=== PATIENT | female | born 1990 | race American Indian/Alaskan Native ===

== ENCOUNTER 2017-03-22 18:37 | Emergency (ER) | payer OTHER, MEDICARE ==
[2017-03-22 18:48] VITALS: BP 136/82
--- NOTE | 2017-03-22 20:21 | Ultrasound Report ---
FINAL REPORT PROCEDURE: US OB \T\gt; = 14 WEEKS FETUS TECHNIQUE: Real-time transabdominal sonography of the uterus, placenta, amniotic fluid, adnexa, and fetus was performed with image documentation. Measurements were obtained to determine age/size. M-mode Doppler was used to document heartbeat. CPT 34535 HISTORY: Pain after trauma COMPARISON: No prior studies are available for comparison. FINDINGS: ADDITIONAL GESTATION: None. GENERAL: IUP: Single living intrauterine . Position: Breech Placental position: Posterior and grade 0, without previa. Amniotic fluid volume: Subjectively within normal limits. Volume is not measured. MATERNAL: Uterus: Within normal limits. Cervical length: Transabdominal measurement is 3.3 cm. Internal Os: Closed. FETUS: Heart rate and rhythm: 149 beats per minute anatomic survey: Not performed MEASUREMENTS: BPD: 4.6 centimeters, 19 weeks 5 days HC: 17.2 centimeters, 19 weeks 5 days AC: 14.4 centimeters, 19 weeks 5 days FL: 3.1 centimeters, 19 weeks 5 days Mean Gestational Age (composite criteria): 19 weeks 5 days Ratio biometry: Normal. Estimated Weight: 309 grams. Interval growth: Appropriate. Estimated Due Date (earliest scan): 08/11/2017 IMPRESSION: Single intrauterine gestation at 19 weeks 5 days. Estimated due date: 08/11/2017.
== END 2017-03-23 02:35 | disposition left against medical advice (07) ==
LOC: ED 18:37
DX: R10.9 Unspecified abdominal pain (principal); Z53.21 Procedure and treatment not carried out due to patient leaving prior to being seen by health care provider
CPT/HCPCS: 36415; 76805; 84702

== ENCOUNTER 2017-04-17 07:52 | Outpatient (CLI) | payer MEDICAID ==
[2017-04-17 08:32] VITALS: BP 107/58
[2017-04-17 09:29] LABS: Urine Drugs of Abuse Note Disclamer
[2017-04-17 09:38] LABS: Bilirubin,Urine NEG (Negative); Blood,Urine MOD (Negative); Ketones,Urine NEG (Negative); Leukocyte Esterase,Urine NEG (Negative); Mucus,Urine FEW /HPF; Nitrite,Urine NEG (Negative); Protein,Urine <15 mg/dL mg/dL (Negative); Urobilinogen,Urine < 2.0 mg/dL (<2.0); WBC,Urine < 1.0 /HPF (0.0-6.0)
--- NOTE | 2017-04-17 11:36 | Ultrasound Report ---
ULTRASOUND OB LIMITED History: Vaginal bleeding Technique: Transabdominal ultrasound with Doppler interrogation. Gestation: Single Position: Breech Amniotic Fluid: Within normal limits Placenta: Fundal Placental Grade: 0 No evidence for abruption. Heart Rate: 140 BPM Cervical length: 3.7 cm (Normal > 3 cm)
== END 2017-04-17 10:39 | disposition home or self-care (01) ==
LOC: TRG 07:52
PROVIDERS: ATTEND Obstetrics & Gynecology
DX: O32.1XX0 Maternal care for breech presentation, not applicable or unspecified (principal); O47.02 False labor before 37 completed weeks of gestation, second trimester; Z3A.23 23 weeks gestation of pregnancy
CPT/HCPCS: 76815; 80307; 81001

== ENCOUNTER 2017-06-21 17:44 | Observation (INO) | payer MEDICAID ==
[2017-06-21] MEDS ORDERED: TYLENOL PO PRN (20:23)
[2017-06-21] MEDS ORDERED: COLACE PO PRN (20:23)
--- NOTE | 2017-06-21 21:28 | History and Physical Report ---
History of Present Illness Date of examination: 06/21/17 Chief complaint: Abnormal testing History of present illness: 27-year-old at 32+5 weeks presents with above complaints and issues, she is a [employer] patient with late presentation to care. Essential history this patient with care complicated by chronic hypertension and IUGR was seen at [facility] office today. She was noted to have BPP 6 out of 8 (- 2 fluid w/ GARRET 5) and cat 2 NST. She was therefore referred to [facility] for admission and care. On L&D, her blood pressure is within normal limits. She denies headache, shortness of breath or chest pain. No fever or chills. No contractions noted, no loss of fluid no vaginal bleeding plus movement Past History Past Medical History: hypertension Past Surgical History: no surgical history Social history: single, full code. denies: smoking, alcohol abuse, prescription drug abuse, IV drug use - Obstetrical History Expected Date of Delivery: 08/11/17 Actual Gestation: 32 Week(s) 5 Day(s) : 3 Para: 2 Medications and Allergies Allergies Allergy/AdvReac Type Severity Reaction Status Date / Time No Known Allergies Allergy Unverified 11/21/13 18:27 Home Medications Medication Instructions Recorded Confirmed Last Taken Type Labetalol [Normodyne TAB] 100 mg PO BID 04/17/17 04/17/17 1 Day Ago History ~04/16/17 100 Active Meds: Active Medications Acetaminophen (Tylenol) 650 mg PO Q4H PRN PRN Reason: Pain MILD(1-3)/Fever >100.5/SY Aspirin (Baby Aspirin) 81 mg PO QDAY [facility] Betamethasone Acet/Betameth SodPhos (Celestone Soluspan) 12 mg IM Q24H [facility] Stop: 06/22/17 21:01 Docusate Sodium (Colace) 100 mg PO Q12H PRN PRN Reason: Constipation Lactated Ringer's (Lactated Ringers) 1,000 mls @ 125 mls/hr IV DIRECT [facility] Labetalol HCl (Normodyne) 100 mg PO BID [facility] Multivitamins/Iron/Calcium ( Vitamin) 1 each PO QDAY [facility] Review of Systems Eyes: no diplopia, no photophobia, no blind spots Cardiovascular: no chest pain, no orthopnea, no shortness of breath, no dyspnea on exertion, no high blood pressure Respiratory: no cough, no cough with sputum Gastrointestinal: no abdominal pain, no nausea, no vomiting, no heartburn, no indigestion Genitourinary: no vaginal bleeding, no vaginal discharge, no leakage of fluid, no dysuria, no genital sores, no contractions - Vital Signs Vital signs: Vital Signs Pulse Pulse Ox 96 H 100 06/21/17 19:23 06/21/17 19:23 Temp Pulse Resp BP Pulse Ox 98 F 102 H 118/77 100 06/21/17 20:30 06/21/17 20:30 06/21/17 20:30 06/21/17 19:28 - Physical Exam Cardiovascular: Regular rate, Normal S1, Normal S2 Lungs: Positive: Clear to auscultation, Normal air movement Abdomen: Positive: normal appearance, soft. Negative: distention, tenderness, guarding, rigidity Uterus: Positive: enlarged Adnexa: both: normal Extremities: Positive: normal Results All other labs normal. Assessment and Plan A: 27-year-old at 32+5 weeks with chronic hypertension -Referred from [facility] office Issues -BPP 11/05 (-2 FL w/ GARRET ~ 5) on 06/21/17 -Non reassuring NST -IUGR @ 24 wks (EFW ~ 5% per [facility]) -Nml Dopplers on 06/21/17 -CHTN on labetatlol 100mg BID -Morbid Obesity -h/o of IUFD w/ placental abruptn @ ~ 32 wks P: -Admit for observation and fluid hydration -Continue labetalol -When necessary IV antihypertensives -Will start magnesium if blood pressure in the severe range persistent -Celestone course -GARRET in 48 hours (per [facility]) -Consider repeat BPP and Dopplers in 48 hours -Consider NICU consult - Patient Problems (1) 32 weeks gestation of Current Visit: Yes Status: Acute (2) IUGR (intrauterine growth restriction) Current Visit: Yes Status: Acute (3) Hypertension affecting in third trimester Current Visit: Yes Status: Acute (4) Oligohydramnios in saavedra in third trimester Current Visit: Yes Status: Acute
[2017-06-21] MEDS: LACTATED RINGERS 1,000 ML IV SCH (21:59)
[2017-06-21] MEDS: CELESTONE SOLUSPAN IM SCH (21:59)
[2017-06-21] MEDS: NORMODYNE PO SCH (22:02)
[2017-06-22] MEDS: LACTATED RINGERS 1,000 ML IV SCH (05:51)
--- NOTE | 2017-06-22 09:34 | Progress Note ---
Assessment and Plan - Patient Problems (1) 32 weeks gestation of Current Visit: Yes Status: Acute (2) Hypertension affecting in third trimester Current Visit: Yes Status: Acute Plan to address problem: BP has been stable. Baseline toxemia labs ordered. 24-hr urine ordered. Continue close BP monitoring and labetolol. Continuous monitoring. Repeat BPP tomorrow. (3) IUGR (intrauterine growth restriction) Current Visit: Yes Status: Acute Plan to address problem: Repeat umbilical doppler and S/D ratio tomorrow. (4) Oligohydramnios in saavedra in third trimester Current Visit: Yes Status: Acute Plan to address problem: Repeat GARRET tomorrow. Subjective - Subjective Date of service: 06/22/17 Principal diagnosis: 32 weeks with abnormal BPP Interval history: Patient was admitted at 32 weeks for abnormal BPP yesterday. She goes [facility] weekly for NST and BPP and yesterday, her BPP was 6/8 (-2 for GARRET which was 5). She was sent for admission for monitoring. She has a history of chronic HTN and is on labetolol 100 mg PO BID. Her BP has been stable in 120/80's since admission. NST has been CAT 1. Previous sonogram showed IUGR earlier in this . Her last umbilical doppler was normal. She has received [employer] for FLM. Objective - Vital Signs Vital Signs: Vital Signs - 12hr 06/21/17 06/22/17 06/22/17 22:02 00:58 00:59 Temperature 97.8 F Pulse Rate 102 H 95 H 95 H Respiratory 16 Rate Blood Pressure 118/77 138/83 Blood Pressure 136/83 [Right] O2 Sat by Pulse Oximetry 06/22/17 06/22/17 06/22/17 05:50 06:47 07:55 Temperature 97.6 F 96.4 F L Pulse Rate 90 96 H Respiratory 20 Rate Blood Pressure 120/70 Blood Pressure 121/77 [Right] O2 Sat by Pulse 100 Oximetry 06/22/17 06/22/17 06/22/17 07:56 07:58 08:00 Temperature Pulse Rate 97 H 96 H 97 H Respiratory Rate Blood Pressure 121/77 Blood Pressure [Right] O2 Sat by Pulse 100 89 Oximetry 06/22/17 06/22/17 06/22/17 08:06 08:11 08:16 Temperature Pulse Rate 91 H 89 107 H Respiratory Rate Blood Pressure Blood Pressure [Right] O2 Sat by Pulse 100 100 98 Oximetry 06/22/17 06/22/17 06/22/17 08:21 08:26 08:31 Temperature Pulse Rate 114 H 107 H 106 H Respiratory Rate Blood Pressure Blood Pressure [Right] O2 Sat by Pulse 99 98 98 Oximetry 06/22/17 06/22/17 09:21 09:26 Temperature Pulse Rate 106 H 110 H Respiratory Rate Blood Pressure Blood Pressure [Right] O2 Sat by Pulse 99 100 Oximetry - Exam Cardiovascular: Normal S1, Normal S2 Lungs: Clear to auscultation Vulva: both: normal FHR: category 1 Uterine Contraction Monitor Mode: External Uterine Contraction Pattern: Absent Deep Tendon Reflex Grade: Normal +2 - Labs Labs: Laboratory Results - last 24 hr 06/21/17 21:10 Blood Type A POSITIVE Antibody Screen Negative
[2017-06-22] MEDS: NORMODYNE PO SCH ×2 (10:33→22:00)
[2017-06-22] MEDS: BABY ASPIRIN PO SCH (10:33)
[2017-06-22] MEDS: PRENATAL VITAMIN PO SCH (10:34)
[2017-06-22 10:36] LABS: Basophils % (Auto) 0.2 % (0.0-1.8); Hematocrit 32.3 % (30.3-42.9); Lymphocytes # (Auto) 1.1 K/mm3 (1.2-5.4); Mean Corpuscular HGB Conc 34 % (30-34); Mean Corpuscular Hemoglobin 31 pg (28-32); Mean Corpuscular Volume 90 fl (79-97); Monocytes # (Auto) 0.5 K/mm3 (0.0-0.8); Monocytes % (Auto) 2.8 % (0.0-7.3); Platelet Count 254 K/mm3 (140-440); Red Blood Count 3.58 M/mm3 (3.65-5.03)
[2017-06-22 11:00] LABS: Alanine Aminotransferase 10 units/L (7-56); Albumin 2.7 g/dL (3.9-5); BUN/Creatinine Ratio 9; Blood Urea Nitrogen 7 mg/dL (7-17); Calcium 8.6 mg/dL (8.4-10.2); Hemolysis Index 0
[2017-06-22 11:18] LABS: Alanine Aminotransferase 12 units/L (7-56)
[2017-06-22 16:15] LABS: Uric Acid 5.2 mg/dL (3.5-7.6)
[2017-06-22] MEDS: CELESTONE SOLUSPAN IM SCH (22:01)
[2017-06-23] MEDS: LACTATED RINGERS 1,000 ML IV SCH ×2 (04:05→04:06)
--- NOTE | 2017-06-23 09:19 | Progress Note ---
Assessment and Plan - Patient Problems (1) 32 weeks gestation of Current Visit: Yes Status: Acute (2) Hypertension affecting in third trimester Current Visit: Yes Status: Acute Plan to address problem: BP has been stable. Baseline toxemia labs ordered. 24-hr urine ordered. Continue close BP monitoring and labetolol. Continuous monitoring. BPP and GARRET today. (3) IUGR (intrauterine growth restriction) Current Visit: Yes Status: Acute Plan to address problem: Repeat umbilical doppler and S/D ratio tomorrow. (4) Oligohydramnios in saavedra in third trimester Current Visit: Yes Status: Acute Plan to address problem: Repeat GARRET tomorrow. Subjective - Subjective Date of service: 06/23/17 Principal diagnosis: 32 weeks with abnormal BPP Interval history: Patient was admitted at 32 weeks for abnormal BPP 2 days ago. She sees [facility] weekly for NST and BPP and her last BPP was 6/8 (-2 for GARRET which was 5). She was sent for admission for monitoring. tracing has been CAT 1 since admission. She has a history of chronic HTN and is on labetolol 100 mg PO BID. Her BP has been stable in 120/80's since admission. Previous sonogram showed IUGR earlier in this . Her last umbilical doppler flow was normal. She has received [employer] for FLM. This AM, she denies any complaint. Objective - Vital Signs Vital Signs: Vital Signs - 12hr 06/22/17 06/22/17 06/23/17 22:00 22:04 04:11 Pulse Rate 118 H 118 H 103 H Blood Pressure 111/59 111/59 107/57 - Exam Cardiovascular: Normal S1, Normal S2 Lungs: Clear to auscultation Vulva: both: normal FHR: category 1 Uterine Contraction Monitor Mode: External Uterine Contraction Pattern: Absent Deep Tendon Reflex Grade: Normal +2 - Labs Labs: Abnormal Labs 06/22/17 06/22/17 10:15 10:18 WBC 16.1 H RBC 3.58 L RDW 13.0 L Lymph % (Auto) 7.0 L Lymph # 1.1 L Seg Neutrophils % 90.0 H Seg Neutrophils # 14.5 H Sodium 135 L Carbon Dioxide 19 L Glucose 182 H Albumin 2.7 L Laboratory Results - last 24 hr 06/22/17 06/22/17 06/22/17 10:15 10:18 10:18 WBC 16.1 H RBC 3.58 L Hgb 11.0 Hct 32.3 MCV 90 MCH 31 MCHC 34 RDW 13.0 L Plt Count 254 Lymph % (Auto) 7.0 L Pine % (Auto) 2.8 Eos % (Auto) 0.0 Baso % (Auto) 0.2 Lymph # 1.1 L Pine # 0.5 Eos # 0.0 Baso # 0.0 Seg Neutrophils % 90.0 H Seg Neutrophils # 14.5 H Sodium 135 L Potassium 4.0 Chloride 102.8 Carbon Dioxide 19 L Anion Gap 17 BUN 7 Creatinine 0.8 0.8 Estimated GFR > 60 > 60 BUN/Creatinine Ratio 9 Glucose 182 H Uric Acid 5.2 Calcium 8.6 Total Bilirubin 0.20 AST 17 14 ALT 10 12 Alkaline Phosphatase 84 Lactate Dehydrogenase 139 Total Protein 6.7 Albumin 2.7 L Albumin/Globulin Ratio 0.7 TSH Free T4 06/22/17 06/22/17 12:52 12:52 WBC RBC Hgb Hct MCV MCH MCHC RDW Plt Count Lymph % (Auto) Pine % (Auto) Eos % (Auto) Baso % (Auto) Lymph # Pine # Eos # Baso # Seg Neutrophils % Seg Neutrophils # Sodium Potassium Chloride Carbon Dioxide Anion Gap BUN Creatinine Estimated GFR BUN/Creatinine Ratio Glucose Uric Acid Calcium Total Bilirubin AST ALT Alkaline Phosphatase Lactate Dehydrogenase Total Protein Albumin Albumin/Globulin Ratio TSH 1.330 Free T4 1.01
--- NOTE | 2017-06-23 10:10 | Ultrasound Report ---
ULTRASOUND OB LIMITED History: well being, oligohydramnios Technique: Transabdominal ultrasound with Doppler interrogation. Gestation: Single Position: Cephalic Amniotic Fluid: Normal GARRET = 9.6 cm Heart Rate: 159 BPM
--- NOTE | 2017-06-23 10:10 | Ultrasound Report ---
ULTRASOUND BIOPHYSICAL PROFILE: History: well being, intrauterine growth restriction, oligohydramnios Technique: Transabdominal ultrasound with Doppler interrogation. 2 - breathing movements 2 - movements 2 - posture and tone 2 - Qualitative amniotic fluid volume 8 - TOTAL SCORE OF POSSIBLE 8 Heart Rate (bpm) 149
--- NOTE | 2017-06-23 10:14 | Ultrasound Report ---
ULTRASOUND OB VELOCIMETRY UMBILICAL ARTERY HISTORY: Intrauterine growth restriction, oligohydramnios. TECHNIQUE: Transabdominal ultrasound. Spectral Doppler interrogation was performed on 3 segments of the umbilical cord. FINDINGS: heart rate measures 143 beats per minute. The spectral waveforms are normal and persistent. No evidence for loss or reversal of end-diastolic flow. The resistive index average measures 0.67. The S./D. ratio average measures 3.1. IMPRESSION: Umbilical cord Doppler within normal limits.
[2017-06-23] MEDS: BABY ASPIRIN PO SCH (10:32)
[2017-06-23] MEDS: PRENATAL VITAMIN PO SCH (10:33)
[2017-06-23 10:34] VITALS: BP 118/62
[2017-06-23] MEDS: NORMODYNE PO SCH (10:34)
== END 2017-06-23 11:27 | disposition home or self-care (01) ==
LOC: TRG 17:44 → LD 19:16 → TRG 22:56 → LD 22:57 → OBSVTOIN 06-22 08:32 → INTOOBSV 06-22 08:32
PROVIDERS: ADMIT Obstetrics & Gynecology; ATTEND Obstetrics & Gynecology
DX: O10.013 Pre-existing essential hypertension complicating pregnancy, third trimester (principal); O36.5930 Maternal care for other known or suspected poor fetal growth, third trimester, not applicable or unspecified; O41.03X0 Oligohydramnios, third trimester, not applicable or unspecified; O99.213 Obesity complicating pregnancy, third trimester; E66.01 Morbid (severe) obesity due to excess calories; O76 Abnormality in fetal heart rate and rhythm complicating labor and delivery; Z68.39 Body mass index [BMI] 39.0-39.9, adult; Z3A.32 32 weeks gestation of pregnancy
CPT/HCPCS: 36415; 76815; 76819; 76820; 80053; 82565; 83615; 84439; 84443; 84450; 84460; 84550; 85025; 86850; 86900; 86901; 96360; 96361; 96372; G0378; J0702; J7120

== ENCOUNTER 2017-07-05 11:27 | Observation (INO) | payer OTHER, MEDICAID ==
[2017-07-05] MEDS: LACTATED RINGERS 1,000 ML IV SCH ×3 (12:45→23:32)
[2017-07-05] MEDS ORDERED: COLACE PO PRN (15:00)
[2017-07-05] MEDS ORDERED: TYLENOL PO PRN (15:00)
--- NOTE | 2017-07-05 18:25 | History and Physical Report ---
History of Present Illness Date of examination: 07/05/17 Date of admission: 07/05/17 11:27 Chief complaint: Sent from [facility] due to decreased amniotic fluid History of present illness: 27yo G 3 P 2 0 0 1 @ 34w5d here [place] [facility] [place] hospital admission, IV hydration and surveillance. Her BPP today revealed GARRET of 4.82cm with a score of 6/10. Patient reports positive movements. She denies UCs, vaginal bleeding or LOF. Her course is complicated by morbid obesity, UTI, chronic HTN & IUGR. She is currently on Labetalol 100mg PO BID and Aspirin 81mg PO qd. She has a h/o placenta abruption/IUFD in 2012. Past History Past Medical History: hypertension, other (vitamin d insufficiency) [employer] History: other (breast mass 08/06/2010; gonococcal cervicitis) Family/Genetic History: diabetes (mother, aunt), hypertension (uncle), other ( bipolar disorder(uncle), COPD(father)) Social history: no significant social history - Obstetrical History Expected Date of Delivery: 08/11/17 Actual Gestation: 34 Week(s) 5 Day(s) : 3 Para: 2 Hx # Term Pregnancies: 2 Number of Pregnancies: 0 Spontaneous Abortions: 0 Induced : 0 Number of Living Children: 1 Medications and Allergies Allergies Allergy/AdvReac Type Severity Reaction Status Date / Time No Known Allergies Allergy Unverified 11/21/13 18:27 Home Medications Medication Instructions Recorded Confirmed Last Taken Type Labetalol [Normodyne TAB] 100 mg PO BID 04/17/17 07/05/17 07/05/17 07:00 History Aspirin [Aspirin EC] 1 tab PO QDAY 07/05/17 07/05/17 07/04/17 19:00 History Pnv,Calcium 72/Iron/Folic Acid 1 tab PO QDAY 07/05/17 07/05/17 07/05/17 07:00 History [ Vitamin Plus Low Iron] Active Meds: Active Medications Acetaminophen (Tylenol) 650 mg PO Q4H PRN PRN Reason: Pain MILD(1-3)/Fever >100.5/SY Docusate Sodium (Colace) 100 mg PO Q12H PRN PRN Reason: Constipation Lactated Ringer's (Lactated Ringers) 1,000 mls @ 125 mls/hr IV DIRECT [facility] Last Admin: 07/05/17 17:30 Dose: 125 mls/hr Labetalol HCl (Normodyne) 100 mg PO BID [facility] Multivitamins/Iron/Calcium ( Vitamin) 1 each PO QDAY [facility] Review of Systems All systems: negative - Vital Signs Vital signs: Vital Signs Pulse BP Pulse Ox 97 H 107/67 98 07/05/17 11:59 07/05/17 11:59 07/05/17 11:59 Temp Pulse Resp BP Pulse Ox 98.6 F 105 H 16 133/68 97 07/05/17 18:09 07/05/17 15:15 07/05/17 18:09 07/05/17 15:00 07/05/17 15:15 - Physical Exam Cardiovascular: Regular rate, Normal S1, Normal S2, No murmurs Lungs: Positive: Clear to auscultation, Normal air movement Abdomen: Positive: normal appearance, soft Extremities: Positive: normal Deep Tendon Reflex Grade: Normal +2 - Obstetrical FHR: auscultation normal, category 1 FHR comments: baseline 140, moderate variability, 15x15 accels, no decels Uterine Contraction Monitor Mode: External Uterine Contraction Pattern: Irregular (one noted) Results All other labs normal. Assessment and Plan - Patient Problems (1) Hypertension affecting in third trimester Current Visit: No Status: Acute (2) IUGR (intrauterine growth restriction) Current Visit: No Status: Acute (3) Oligohydramnios in saavedra in third trimester Current Visit: No Status: Acute Plan to address problem: IV hydration Continuous EFM with bathroom privilege Continue Labetalol 100mg PO BID and Aspirin 81mg PO qd Repeat BPP 07/07/17 Anticipate discharge home (4) 34 weeks gestation of Current Visit: Yes Status: Acute
[2017-07-05] MEDS: NORMODYNE PO SCH (23:49)
--- NOTE | 2017-07-06 08:45 | Event Note ---
Date: 07/06/17 S: Here for IV fluid hydration due to low GARRET O: Cat I tracing A: IUP @ 34. 6 weeks P GARRET and BPP in AM
[2017-07-06] MEDS: NORMODYNE PO SCH ×2 (10:13→21:58)
[2017-07-06] MEDS: PRENATAL VITAMIN PO SCH (10:14)
[2017-07-06] MEDS: BABY ASPIRIN PO SCH (10:15)
[2017-07-06] MEDS: LACTATED RINGERS 1,000 ML IV SCH ×2 (11:13→19:46)
[2017-07-07] MEDS: LACTATED RINGERS 1,000 ML IV SCH ×2 (03:52→12:01)
--- NOTE | 2017-07-07 09:39 | Progress Note ---
Assessment and Plan - Patient Problems (1) 35 weeks gestation of Current Visit: Yes Status: Acute (2) Chronic hypertension Current Visit: Yes Status: Acute Plan to address problem: Continue labetolol. (3) IUGR (intrauterine growth restriction) Current Visit: No Status: Acute (4) Oligohydramnios Current Visit: Yes Status: Acute Qualifiers: Fetus number: single or unspecified fetus Plan to address problem: Repeat GARRET and BPP this AM. Subjective - Subjective Date of service: 07/07/17 Principal diagnosis: CHTN, IUGR, oligohydramnios Interval history: Patient was admitted at 35 weeks for observation 2 days ago for oligohydramnios with GARRET of 4.8 and IUGR. tracing has been CAT 1. Repeat BPP and GARRET are scheduled for this AM. This AM, she denies any contraction or fluid leakage. Objective - Vital Signs Vital Signs: Vital Signs - 12hr 07/06/17 07/06/17 07/06/17 21:58 22:39 23:09 Temperature Pulse Rate 103 H 97 H 100 H Respiratory Rate Blood Pressure 110/64 107/59 107/58 Blood Pressure [Right] O2 Sat by Pulse Oximetry 07/06/17 07/07/17 07/07/17 23:39 00:09 08:35 Temperature 97 F L Pulse Rate 105 H 86 104 H Respiratory 24 Rate Blood Pressure 106/60 105/52 Blood Pressure 106/64 [Right] O2 Sat by Pulse 100 Oximetry 07/07/17 07/07/17 07/07/17 08:39 08:40 08:45 Temperature Pulse Rate 109 H 108 H 112 H Respiratory Rate Blood Pressure 106/64 Blood Pressure [Right] O2 Sat by Pulse 100 99 Oximetry 07/07/17 07/07/17 07/07/17 08:50 08:55 08:59 Temperature Pulse Rate 116 H 108 H 114 H Respiratory Rate Blood Pressure Blood Pressure [Right] O2 Sat by Pulse 99 99 53 L Oximetry 07/07/17 07/07/17 07/07/17 09:00 09:05 09:10 Temperature Pulse Rate 100 H 110 H 103 H Respiratory Rate Blood Pressure Blood Pressure [Right] O2 Sat by Pulse 100 98 100 Oximetry 07/07/17 09:15 Temperature Pulse Rate 109 H Respiratory Rate Blood Pressure Blood Pressure [Right] O2 Sat by Pulse 100 Oximetry - Exam Cardiovascular: Normal S1, Normal S2 Lungs: Clear to auscultation Vulva: both: normal FHR: category 1 Uterine Contraction Monitor Mode: External Uterine Contraction Pattern: Absent Deep Tendon Reflex Grade: Normal +2
[2017-07-07] MEDS: NORMODYNE PO SCH (10:02)
[2017-07-07] MEDS: BABY ASPIRIN PO SCH (10:05)
[2017-07-07] MEDS: PRENATAL VITAMIN PO SCH (10:05)
[2017-07-07 12:35] VITALS: BP 98/55
--- NOTE | 2017-07-07 14:21 | Progress Note ---
Assessment and Plan - Patient Problems (1) 35 weeks gestation of Current Visit: Yes Status: Acute (2) Chronic hypertension Current Visit: Yes Status: Acute Plan to address problem: Continue labetolol. (3) IUGR (intrauterine growth restriction) Current Visit: No Status: Acute (4) Oligohydramnios Current Visit: Yes Status: Acute Qualifiers: Fetus number: single or unspecified fetus Plan to address problem: Repeat GARRET and BPP this AM.GARRET is 6.9 and BPP is 8/8 today. Pt is being discharged home as per Dr. Lala. She will F/U with him tomorrow. Subjective - Subjective Date of service: 07/07/17 Principal diagnosis: CHTN, IUGR, oligohydramnios Interval history: Patient was admitted at 35 weeks for observation 2 days ago for oligohydramnios with GARRET of 4.8 and IUGR. tracing has been CAT 1. Repeat BPP is 8/8 and GARRET is 6.9 this AM. She denies any contraction or fluid leakage. I spoke with MFM Dr. Lala and he said that the patient can be discharged home with precautions. Pt has appt with him tomorrow. Labor precautions given. Objective - Vital Signs Vital Signs: Vital Signs - 12hr 07/07/17 07/07/17 07/07/17 08:35 08:39 08:40 Temperature 97 F L Pulse Rate 104 H 109 H 108 H Respiratory 24 Rate Blood Pressure 106/64 Blood Pressure 106/64 [Right] O2 Sat by Pulse 100 100 Oximetry 07/07/17 07/07/17 07/07/17 08:45 08:50 08:55 Temperature Pulse Rate 112 H 116 H 108 H Respiratory Rate Blood Pressure Blood Pressure [Right] O2 Sat by Pulse 99 99 99 Oximetry 07/07/17 07/07/17 07/07/17 08:59 09:00 09:05 Temperature Pulse Rate 114 H 100 H 110 H Respiratory Rate Blood Pressure Blood Pressure [Right] O2 Sat by Pulse 53 L 100 98 Oximetry 07/07/17 07/07/17 07/07/17 09:10 09:15 10:02 Temperature Pulse Rate 103 H 109 H 107 H Respiratory Rate Blood Pressure 117/72 Blood Pressure [Right] O2 Sat by Pulse 100 100 Oximetry 02/07/18 02/07/18 02/07/18 10:08 12:07 12:08 Temperature 96.5 F L Pulse Rate 107 H 86 95 H Respiratory 20 Rate Blood Pressure 117/72 121/69 Blood Pressure 121/69 [Right] O2 Sat by Pulse 100 Oximetry 07/07/17 07/07/17 07/07/17 12:12 12:13 12:18 Temperature Pulse Rate 89 90 93 H Respiratory Rate Blood Pressure Blood Pressure [Right] O2 Sat by Pulse 0 L 100 100 Oximetry 07/07/17 07/07/17 07/07/17 12:23 12:28 12:33 Temperature Pulse Rate 88 93 H 89 Respiratory Rate Blood Pressure Blood Pressure [Right] O2 Sat by Pulse 100 97 99 Oximetry 07/07/17 07/07/17 12:38 12:43 Temperature Pulse Rate 91 H 94 H Respiratory Rate Blood Pressure 98/55 Blood Pressure [Right] O2 Sat by Pulse 99 100 Oximetry - Exam Cardiovascular: Normal S1, Normal S2 Lungs: Clear to auscultation Vulva: both: normal FHR: category 1 Uterine Contraction Monitor Mode: External Uterine Contraction Pattern: Absent Deep Tendon Reflex Grade: Normal +2
--- NOTE | 2017-07-07 14:25 | Discharge Summary ---
Providers - Providers Date of Admission: 07/05/17 11:27 Date of discharge: 07/07/17 Attending physician: YAYA BLANCO MD Primary care physician: YAYA BLANCO MD Hospitalization Reason for admission: other (IUGR, oligohydramnios, CHTN) Discharge diagnosis: other (35 weeks, IUGR, oligohydramnios, CHTN) Condition at discharge: Stable Disposition: DC-01 TO HOME OR SELFCARE - Discharge Diagnoses (1) 35 weeks gestation of Status: Acute (2) Chronic hypertension Status: Acute (3) IUGR (intrauterine growth restriction) Status: Acute (4) Oligohydramnios Status: Acute Qualifiers: Fetus number: single or unspecified fetus Plan - Provider Discharge Summary Activity: routine Diet: routine Instructions: routine Additional instructions: [] Smoking cessation referral if applicable(refer to patient education folder for contact #) [] Refer to [facility]'s [facility] Booklet Call your doctor immediately for: * Fever > 100.5 * Heavy vaginal bleeding ( >1 pad per hour) * Severe persistent headache * Shortness of breath * Reddened, hot, painful area to leg or breast * Drainage or odor from incision. * Keep incision clean and dry at all times and follow doctor's instructions regarding bathing/showering - Follow up plan Follow up: YAYA BLNACO MD [Primary Care Provider] - 7 Days
--- NOTE | 2017-07-07 14:52 | Ultrasound Report ---
ULTRASOUND OB LIMITED History: Oligohydramnios Technique: Transabdominal ultrasound with Doppler interrogation. Gestation: Single Position: Cephalic Amniotic Fluid: Slightly low GARRET = 6.9 cm Heart Rate: 138 BPM
--- NOTE | 2017-07-07 14:53 | Ultrasound Report ---
ULTRASOUND BIOPHYSICAL PROFILE: History: Oligohydramnios Technique: Transabdominal ultrasound with Doppler interrogation. 2 - breathing movements 2 - movements 2 - posture and tone 2 - Qualitative amniotic fluid volume 8 - TOTAL SCORE OF POSSIBLE 8 Heart Rate (bpm) 138
== END 2017-07-07 14:50 | disposition home or self-care (01) ==
LOC: INTOOBSV 11:27 → LD 11:27
PROVIDERS: ADMIT Obstetrics & Gynecology; ATTEND Obstetrics & Gynecology
DX: O36.5930 Maternal care for other known or suspected poor fetal growth, third trimester, not applicable or unspecified (principal); O41.03X0 Oligohydramnios, third trimester, not applicable or unspecified; O13.3 Gestational [pregnancy-induced] hypertension without significant proteinuria, third trimester; Z3A.34 34 weeks gestation of pregnancy; Z87.440 Personal history of urinary (tract) infections
CPT/HCPCS: 76815; 76819; 96360; 96361; 99285; G0378; G0379; J7120

== ENCOUNTER 2017-07-20 10:11 | Inpatient (IN) | payer OTHER, MEDICAID ==
[2017-07-20] MEDS ORDERED: CERVIDIL VG ONE ×3 (13:09→18:30)
[2017-07-20] MEDS ORDERED: LACTATED RINGERS 1,000 ML IV SCH ×2 (14:00→15:00)
[2017-07-20] MEDS ORDERED: ePHEDrine SULFATE IV PRN (14:08)
[2017-07-20] MEDS ORDERED: STADOL IV PRN (14:08)
[2017-07-20] MEDS ORDERED: BRETHINE SUB-Q PRN (14:08)
[2017-07-20] MEDS ORDERED: BRETHINE IVP PRN (14:08)
[2017-07-20] MEDS ORDERED: MINERAL OIL PO PRN (14:08)
--- NOTE | 2017-07-20 14:17 | History and Physical Report ---
History of Present Illness Date of examination: 07/20/17 Date of admission: 07/20/17 10:11 Chief complaint: 36 weeks and 6 days gestation with IUGR, oligohydramnios. History of present illness: Patient is a 27 year old , LMP 11/04/16, EDC 08/11/17 at 36 weeks an 6 days gestation who was admitted for labor induction for IUGR, oligohydramnios, CHTN. Patient has been co-managed with [facility] who has been monitoring the her for IUGR. growth has been <7th percentile. Patient has a history of IUFD at 36 weeks secondary to placental abruption. On admission, she denied any contraction, fluid leakage or bleeding. She reported good movement. tracing has been CAT1. BPP was 8/8 yesterday. Past History Past Medical History: other (CHTN, morbid obesity, vitd def, placental abruption.) Past Surgical History: no surgical history, other - Obstetrical History Expected Date of Delivery: 08/11/17 Actual Gestation: 36 Week(s) 6 Day(s) : 3 Para: 2 Number of Living Children: 1 Medications and Allergies Allergies Allergy/AdvReac Type Severity Reaction Status Date / Time No Known Allergies Allergy Unverified 11/21/13 18:27 Home Medications Medication Instructions Recorded Confirmed Last Taken Type Labetalol [Normodyne TAB] 100 mg PO BID 04/17/17 07/05/17 07/05/17 07:00 History Aspirin [Aspirin EC] 1 tab PO QDAY 07/05/17 07/05/17 07/04/17 19:00 History Pnv,Calcium 72/Iron/Folic Acid 1 tab PO QDAY 07/05/17 07/05/17 07/05/17 07:00 History [ Vitamin Plus Low Iron] Active Meds: Active Medications Lactated Ringer's (Lactated Ringers) 1,000 mls @ 125 mls/hr IV DIRECT MIMI Last Admin: 07/20/17 13:28 Dose: 125 mls/hr Labetalol HCl (Normodyne) 100 mg PO BID MIMI - Vital Signs Vital signs: Vital Signs Temp Pulse Resp BP 96.4 F L 112 H 16 114/75 07/20/17 10:48 07/20/17 10:48 07/20/17 10:48 07/20/17 10:48 Temp Pulse Resp BP Pulse Ox 96.4 F L 89 16 118/71 07/20/17 10:48 07/20/17 13:41 07/20/17 10:48 07/20/17 13:41 - Physical Exam Cardiovascular: Normal S1, Normal S2 Lungs: Positive: Clear to auscultation Vulva: both: normal Deep Tendon Reflex Grade: Normal +2 - Obstetrical FHR: category 1 Uterine Contraction Monitor Mode: External Cervical Dilatation: 0 Cervical Effacement Percentage: 20 station: -2 Uterine Contraction Pattern: Absent Results All other labs normal. Assessment and Plan - Patient Problems (1) 36 weeks gestation of Current Visit: Yes Status: Acute (2) IUGR (intrauterine growth restriction) Current Visit: No Status: Acute Plan to address problem: Admit for labor induction. monitoring. Routine admitting labs. IV fluid. Cervidil induction. (3) Oligohydramnios Current Visit: Yes Status: Acute (4) Chronic hypertension Current Visit: No Status: Acute Plan to address problem: Monitor BP. Continue labetolol. BP has been stable. Will do toxemia labs if BP becomes elevated. Urinalysis. (5) Morbid obesity due to excess calories Current Visit: Yes Status: Acute (6) Vitamin D deficiency Current Visit: Yes Status: Acute (7) Positive GBS test Current Visit: Yes Status: Acute Plan to address problem: IV antibiotics.
[2017-07-20 14:28] LABS: Hematocrit 34.5 % (30.3-42.9); Hemoglobin 11.9 gm/dl (10.1-14.3); Mean Corpuscular HGB Conc 35 % (30-34); Mean Corpuscular Hemoglobin 31 pg (28-32); Mean Corpuscular Volume 91 fl (79-97); Platelet Count 242 K/mm3 (140-440); Red Blood Count 3.82 M/mm3 (3.65-5.03); Red Cell Distribution Width 13.3 % (13.2-15.2)
--- NOTE | 2017-07-20 14:31 | Progress Note ---
Assessment and Plan - Patient Problems (1) 36 weeks gestation of Current Visit: Yes Status: Acute (2) IUGR (intrauterine growth restriction) Current Visit: No Status: Acute Plan to address problem: Admit for labor induction. monitoring. Routine admitting labs. IV fluid. Cervidil induction. (3) Oligohydramnios Current Visit: Yes Status: Acute (4) Chronic hypertension Current Visit: No Status: Acute Plan to address problem: Monitor BP. Continue labetolol. BP has been stable. Will do toxemia labs if BP becomes elevated. Urinalysis. (5) Morbid obesity due to excess calories Current Visit: Yes Status: Acute (6) Vitamin D deficiency Current Visit: Yes Status: Acute (7) Positive GBS test Current Visit: Yes Status: Acute Plan to address problem: IV antibiotics. Subjective - Subjective Date of service: 07/20/17 Principal diagnosis: 36 weeks and 6 days with CHTN, IUGR, oligohydramnios Interval history: Patient is a 27 year old , LMP 11/04/16, EDC 08/11/17 at 36 weeks an 6 days gestation who was admitted for labor induction for IUGR, oligohydramnios, CHTN. Patient has been co-managed with [facility] who has been monitoring the her for IUGR. growth has been <7th percentile. Patient has a history of IUFD at 36 weeks secondary to placental abruption. On admission, she denied any contraction, fluid leakage or bleeding. She reported good movement. tracing has been CAT1. BPP was 8/8 yesterday. Exam: cervix closed/20%/-2. VTX by bedside ultrasound. Cervidil 10 mg inserted vaginally at 1:30 PM. Objective - Vital Signs Vital Signs: Vital Signs - 12hr 07/20/17 07/20/17 07/20/17 10:48 10:51 13:41 Temperature 96.4 F L Pulse Rate 112 H 112 H 89 Respiratory 16 Rate Blood Pressure 114/75 118/71 Blood Pressure 114/75 [Left] - Exam Cardiovascular: Normal S1, Normal S2 Lungs: Clear to auscultation Vulva: both: normal FHR: category 1 Uterine Contraction Monitor Mode: External Cervical Dilatation: 0 Cervical Effacement Percentage: 20 station: -2 Uterine Contraction Pattern: Absent - Labs Labs: Abnormal Labs 07/20/17 13:58 MCHC 35 H Laboratory Results - last 24 hr 07/20/17 13:58 WBC 9.8 RBC 3.82 Hgb 11.9 Hct 34.5 MCV 91 MCH 31 MCHC 35 H RDW 13.3 Plt Count 242
[2017-07-20] MEDS ORDERED: PITOCin/NS 20 UNIT/1000ML DRIP 20 UNITS/1,000 ML BAG IV SCH (15:00)
[2017-07-20] MEDS: NORMODYNE PO SCH (18:06)
[2017-07-20] MEDS ORDERED: POLYCILLIN/NS 1 GM/50 ML 1 GM/50 ML BAG IV SCH (18:11)
--- NOTE | 2017-07-21 03:27 | Progress Note ---
Assessment and Plan - Patient Problems (1) 37 weeks gestation of Onset Date: 07/21/17 Current Visit: Yes Status: Acute Plan to address problem: A: IUP @ 37 0/7 weeks - unable to induce labor Chronic hypertension IUGR History of IUFD Oligohydramnios P: Will proceed with a C Section when OR available (2) Chronic hypertension Onset Date: 07/21/17 Current Visit: No Status: Chronic (3) IUGR (intrauterine growth restriction) Onset Date: 07/21/17 Current Visit: No Status: Acute (4) Oligohydramnios in saavedra in third trimester Onset Date: 07/21/17 Current Visit: No Status: Acute Subjective - Subjective Date of service: 07/21/17 Principal diagnosis: 36 weeks and 6 days with CHTN, IUGR, oligohydramnios Interval history: Patient is a 27 year old , LMP 11/04/16, EDC 08/11/17 at 36 weeks an 6 days gestation who was admitted for labor induction for IUGR, oligohydramnios, CHTN. Patient has been co-managed with [facility] who has been monitoring the her for IUGR. growth has been <7th percentile. Patient has a history of IUFD at 36 weeks secondary to placental abruption. On admission, she denied any contraction, fluid leakage or bleeding. She reported good movement. tracing has been CAT1. BPP was 8/8 yesterday. Exam was cervix closed/20%/-2 on admission. VTX by bedside ultrasound. The 1st Cervidil 10 mg inserted vaginally @ 1:30 PM, but was pulled @ 3:22 PM due to late decelerations. The 2nd Cervidel was placed @ 6:40PM, but was pulled @ 01: 00 AM again due to late decelerations. She is currently doing better, but will need delivery by C Section. Patient reports: movement normal, no new complaints, no loss of fluid, no vaginal bleeding Objective - Vital Signs Vital Signs: Vital Signs - 12hr 07/20/17 07/20/17 07/20/17 18:06 18:12 19:50 Temperature Pulse Rate 106 H 106 H 97 H Respiratory Rate Blood Pressure 106/61 106/61 86/48 Blood Pressure [Left] O2 Sat by Pulse Oximetry 07/20/17 07/20/17 07/21/17 22:00 22:15 01:08 Temperature 97 F L Pulse Rate 100 H 100 H 99 H Respiratory 16 Rate Blood Pressure 95/54 Blood Pressure 95/52 [Left] O2 Sat by Pulse 99 Oximetry 07/21/17 07/21/17 07/21/17 01:13 01:18 01:23 Temperature Pulse Rate 97 H 92 H 92 H Respiratory Rate Blood Pressure Blood Pressure [Left] O2 Sat by Pulse 97 97 97 Oximetry 07/21/17 07/21/17 07/21/17 01:28 01:33 01:38 Temperature Pulse Rate 89 91 H 94 H Respiratory Rate Blood Pressure Blood Pressure [Left] O2 Sat by Pulse 96 96 96 Oximetry 07/21/17 07/21/17 07/21/17 01:43 01:48 01:53 Temperature Pulse Rate 92 H 90 107 H Respiratory Rate Blood Pressure Blood Pressure [Left] O2 Sat by Pulse 96 97 97 Oximetry 07/21/17 07/21/17 07/21/17 01:58 02:03 02:08 Temperature Pulse Rate 89 89 98 H Respiratory Rate Blood Pressure Blood Pressure [Left] O2 Sat by Pulse 95 96 96 Oximetry 07/21/17 07/21/17 07/21/17 02:18 02:23 02:28 Temperature Pulse Rate 106 H 85 111 H Respiratory Rate Blood Pressure Blood Pressure [Left] O2 Sat by Pulse 96 95 98 Oximetry 07/21/17 07/21/17 07/21/17 02:33 02:38 02:43 Temperature Pulse Rate 97 H 94 H 89 Respiratory Rate Blood Pressure Blood Pressure [Left] O2 Sat by Pulse 97 96 97 Oximetry 07/21/17 07/21/17 07/21/17 02:48 02:53 02:58 Temperature Pulse Rate 107 H 98 H 95 H Respiratory Rate Blood Pressure Blood Pressure [Left] O2 Sat by Pulse 97 96 96 Oximetry 07/21/17 07/21/17 03:03 03:08 Temperature Pulse Rate 95 H 92 H Respiratory Rate Blood Pressure Blood Pressure [Left] O2 Sat by Pulse 97 97 Oximetry - Exam FHR: category 2 Uterine Contraction Monitor Mode: External Uterine Contraction Pattern: Irregular Uterine Tone Measurement Phase: Contraction Uterine Contraction Intensity: Mild - Labs Labs: Abnormal Labs 07/20/17 13:58 MCHC 35 H Laboratory Results - last 24 hr 07/20/17 07/20/17 13:58 13:58 WBC 9.8 RBC 3.82 Hgb 11.9 Hct 34.5 MCV 91 MCH 31 MCHC 35 H RDW 13.3 Plt Count 242 Blood Type A POSITIVE Antibody Screen Negative
[2017-07-21] MEDS ORDERED: PEPCID IV ONE (03:40)
[2017-07-21] MEDS ORDERED: REGLAN IV ONE (03:40)
[2017-07-21] MEDS ORDERED: BICITRA PO ONE (03:40)
[2017-07-21] MEDS ORDERED: ANCEF/STERILE WATER 2 GM/20 ML 2 GM/20 ML SYRINGE IV NR (04:00)
[2017-07-21] MEDS ORDERED: PITOCin/NS 20 UNIT/1000ML DRIP 20 UNITS/1,000 ML BAG IV SCH ×2 (04:00→08:00)
[2017-07-21] MEDS ORDERED: LACTATED RINGERS 1,000 ML IV SCH (04:00)
[2017-07-21] MEDS ORDERED: SUBLIMAZE ONE (06:09)
[2017-07-21] MEDS ORDERED: ANCEF/STERILE WATER 2 GM/20 ML IV ONE (06:15)
[2017-07-21] MEDS ORDERED: NACL 0.9% IR ONE (06:34)
[2017-07-21] MEDS ORDERED: WATER FOR IRRIG STERILE IR ONE (06:34)
[2017-07-21] MEDS ORDERED: NEO SYNEPHRINE/NS Syringe(OR USE) IV ONE (06:49)
--- NOTE | 2017-07-21 07:26 | Operative Report ---
Operative Report Operative Report: Date of procedure: 07/21/2017 Pre-operative diagnosis: 1. Intrauterine at 37-0/7 weeks 2. Non- reassuring surveillance 3. Chronic hypertension 4. Intrauterine growth restriction 5. Oligohydramnios 6. Failed induction of labor Post-operative diagnosis: Same Procedure name(s): Primary low transverse section Surgeon: Clyde Georges MD Cash Application Representative: None Anesthesia: Spinal anesthesia by Dr. Chappell EBL: 700 mL's Findings: A 2199 g female Apgars 8 at 1 minute and 9 at 5 minutes. Nuchal cord 1. Clear amniotic fluid. Normal uterus. Normal tubes and ovaries bilaterally. Procedure: After the patient was prepped and draped in usual sterile fashion, and after satisfactory level of epidural anesthesia was obtained, the skin knife was used to make a transverse skin incision. The incision was excised down to layer of the fascia, which was nicked in the midline and extended laterally using the Bovie cautery. The rectus muscles were dissected off the rectus fascia both superiorly and inferiorly. The rectus bellies in the midline, and the peritoneum was entered under direct visualization. The peritoneal incision was extended superiorly and inferiorly. A bladder flap was created and the bladder blade was then placed. The uterus was scored in a curvilinear linear fashion, entered in the midline revealing clear amniotic fluid. The infant's head was delivered onto the surgical field, nuchal cord 1 reduced and the oropharynx and nasopharynx were bulb suctioned. The rest of the 's body was delivered, cord was doubly clamped and cut and the was handed to the waiting respiratory team. The placenta was manually removed from the uterus, and the uterus removed from its normal anatomical position. After gentle uterine lavage, the incision was inspected and found to be without extensions. It was then closed in 2 layers using 0 Vicryl suture in a running interlocking fashion, the second layer imbricating the first. After good hemostasis was achieved, copious amounts or irrigation was performed, and the gutters were suctioned free of blood and blood clots. Tisseel sealant was sprayed across the uterine incision. The uterus was then returned to its normal anatomical position, and after excellent hemostasis assured, the peritoneum was re-approximated using 3-0 Vicryl suture in a running interlocking fashion, and then the rectus muscles were re-approximated using 3- 0 Vicryl suture in a [id number] configuration. The fascia was then re- approximated using 0 Vicryl suture in running interlocking fashion. The subcutaneous layer was made hemostatic using Bovie cautery, the Tisseel sealant was sprayed across the fascial incision and the skin edges re-approximated using 4-0 Vicryl suture in a sub-cuticular fashion. Patient tolerated the procedure well was transported to recovery in stable condition.
[2017-07-21] MEDS ORDERED: NARCAN 0.4 MG/1 ML IV PRN (08:00)
[2017-07-21] MEDS ORDERED: ZOFRAN IV PRN (08:00)
[2017-07-21] MEDS ORDERED: ANCEF/NS 1 GM/50 ML 1 GM/50 ML BAG IV SCH (08:00)
[2017-07-21] MEDS ORDERED: TUCKS PAD TP PRN (08:00)
[2017-07-21] MEDS ORDERED: SODIUM CHLORIDE FLUSH SYRINGE 10 ML IV PRN (08:00)
[2017-07-21] MEDS ORDERED: TYLENOL PO PRN (08:00)
[2017-07-21] MEDS ORDERED: MYLICON PO PRN (08:00)
[2017-07-21] MEDS ORDERED: PHENERGAN PR PRN (08:00)
[2017-07-21] MEDS ORDERED: NORCO 5/325 PO PRN (08:00)
[2017-07-21] MEDS ORDERED: LANSINOH TP PRN (08:00)
[2017-07-21] MEDS: D5LR 1,000 ML IV SCH ×2 (08:43→19:01)
--- NOTE | 2017-07-21 09:04 | Anesthesia Consultation ---
Anesthesia Consult and Med Hx Date of service: 07/21/17 - Airway Anesthetic Teeth Evaluation: Good ROM Head & Neck: Adequate Mental/Hyoid Distance: Adequate Mallampati Class: Class II Intubation Access Assessment: Probably Good - Pulmonary Exam CTA: Yes - Cardiac Exam Cardiac Exam: RRR - Pre-Operative Health Status ASA Pre-Surgery Classification: ASA2 Proposed Anesthetic Plan: Spinal - Pulmonary Hx Asthma: No COPD: No Hx Pneumonia: No - Cardiovascular System Hx Hypertension: Yes - Central Nervous System Hx Seizures: No Hx Psychiatric Problems: No - Endocrine Hx Renal Disease: No Hx End Stage Renal Disease: No Hx Hypothyroidism: No Hx Hyperthyroidism: No - Hematic Hx Anemia: No Hx Sickle Cell Disease: No - Other Systems Hx Alcohol Use: No
--- NOTE | 2017-07-21 09:04 | Anesthesia Day of Surgery ---
Anesthesia Day of Surgery - Day of Surgery Patient Examined: Yes Patient H&P Reviewed: Yes Patient is NPO: Yes
--- NOTE | 2017-07-21 09:05 | Post Anesthesia Evaluation ---
- Post Anesthesia Evaluation Patient Participated: Yes Airway Patent: Yes Stable Respiratory Function: Yes Nausea/Vomiting: No Temp > 96.8F: Yes Pain Manageable: Yes Adequeate Hydration: Yes Anesthesia Complications: No Block Receding Appropriately: Yes Patient on Ventilator: No
[2017-07-21] MEDS: FEOSOL PO SCH (10:25)
[2017-07-21] MEDS: TORADOL IV PRN ×2 (10:25→16:30)
[2017-07-21] MEDS: NORMODYNE PO SCH ×2 (10:25→21:46)
[2017-07-21] MEDS ORDERED: ceFAZolin 1 GM in NACL 0.9% 20 ML IV SCH (15:30)
[2017-07-21 21:30] LABS: Hematocrit 32.3 % (30.3-42.9); Hemoglobin 11.3 gm/dl (10.1-14.3)
[2017-07-21] MEDS: ceFAZolin 1 GM in NACL 0.9% 20 ML IV SCH (21:45)
[2017-07-21] MEDS: PERCOCET 5/325 PO PRN (21:51)
[2017-07-21] MEDS: MOTRIN PO PRN (21:51)
[2017-07-21] MEDS ORDERED: SENOKOT PO PRN (22:00)
[2017-07-21] MEDS ORDERED: MILK OF MAGNESIA PO PRN (22:00)
[2017-07-22] MEDS: PERCOCET 5/325 PO PRN ×3 (03:59→17:27)
[2017-07-22] MEDS: MOTRIN PO PRN ×2 (03:59→22:00)
[2017-07-22] MEDS ORDERED: BOOSTRIX IM ONE (06:00)
[2017-07-22] MEDS: ceFAZolin 1 GM in NACL 0.9% 20 ML IV SCH (06:03)
--- NOTE | 2017-07-22 09:57 | Progress Note ---
Assessment and Plan A: POD #1 CHTN P: Follow Routine PostOp Orders Continue Labetolol 100mg PO BID Advance Diet Subjective - Subjective Date of service: 07/22/17 Principal diagnosis: 36 weeks and 6 days with CHTN, IUGR, oligohydramnios Patient reports: appetite normal, voiding normally, pain well controlled, flatus , ambulating normally, other (Denies HAs, Visual changes, N&V, and Dizziness) : doing well, bottle feeding (and ) Objective - Vital Signs Latest vital signs: Vital Signs Temp Pulse Resp BP BP Pulse Ox 07/22/17 07:56 97.5 F L 80 20 103/67 97 07/22/17 00:00 98.6 F 66 18 112/79 07/21/17 21:46 66 115/72 07/21/17 20:00 98.6 F 66 18 115/72 07/21/17 16:47 98.6 F 95 H 18 110/71 96 Intake and Output 07/21/17 07/22/17 07/22/17 22:59 06:59 14:59 Intake Total 1300 Output Total 1850 1300 Balance -550 -1300 Intake: IV 1000 D5lr 1,000 ml @ 125 mls/ 1000 hr IV DIRECT MIMI Rx#: [id number] Intake, Free Water 300 Output: Urine 1850 1300 Indwelling Catheter 800 Void 1050 1300 Other: Total, Output Amount 800 700 # Voids Void 1 1 - Exam Breasts: Present: normal Cardiovascular: Present: Regular rate Lungs: Present: Clear to auscultation, Normal air movement Abdomen: Present: normal appearance, soft, normal bowel sounds Uterus: Present: normal, firm, fundal height below umbilicus Extremities: Present: normal Incision: Present: normal, dry, dressed
[2017-07-22] MEDS: FEOSOL PO SCH (10:36)
[2017-07-22] MEDS: NORMODYNE PO SCH ×2 (10:36→22:00)
[2017-07-22] MEDS ORDERED: M-M-R II VACCINE SUB-Q ONE (11:00)
[2017-07-23] MEDS: PERCOCET 5/325 PO PRN ×3 (00:11→12:00)
[2017-07-23] MEDS: MOTRIN PO PRN (07:14)
--- NOTE | 2017-07-23 09:32 | Progress Note ---
Assessment and Plan - Patient Problems (1) S/P primary low transverse Current Visit: Yes Status: Acute Plan to address problem: POD 2 - stable Continue routine PP/PO orders Continue Labetalol 100mg PO BID Discharge to home later today F/U at [facility] in 2 weeks for incision check and in 6 weeks for PP exam Schedule appt with Event Coordinator for checkup Subjective - Subjective Date of service: 07/23/17 Principal diagnosis: s/p Primary LTCS, CHTN Patient reports: appetite normal, voiding normally, pain well controlled, flatus , bowel movement, ambulating normally [place]: doing well Objective - Vital Signs Latest vital signs: Vital Signs Temp Pulse Resp BP BP Pulse Ox 07/23/17 00:05 97.9 F 90 20 90/52 97 07/22/17 22:00 80 112/65 07/22/17 16:15 97.9 F 90 20 102/63 07/22/17 10:36 103/67 Intake and Output 07/22/17 07/23/17 07/23/17 23:59 07:59 15:59 Intake Total 360 360 Balance 360 360 Intake: Oral 360 360 Other: Total, Intake Amount 240 120 Voiding Method Toilet # Voids Void 1 1 - Exam Cardiovascular: Present: Regular rate, Normal S1, Normal S2, No murmurs Lungs: Present: Clear to auscultation, Normal air movement Abdomen: Present: normal appearance Vulva: both: normal Uterus: Present: normal, firm Extremities: Present: normal Deep Tendon Reflex Grade: Normal +2 Incision: Present: normal, dry, intact
--- NOTE | 2017-07-23 09:34 | Discharge Summary ---
Providers - Providers Date of Admission: 07/20/17 10:11 Date of discharge: 07/23/17 Attending physician: YAYA BLANCO MD Primary care physician: YAYA BLANCO MD Hospitalization Reason for admission: IUP - (36w6d), induction of labor (secondary to IUGR) Delivery: Procedure: primary low transverse Episiotomy: none Laceration: none Incision: normal, dry, intact Other procedures: none complications: none Discharge diagnosis: delivery [place] baby: female Hospital course: Uncomplicated Condition at discharge: Stable Disposition: DC-01 TO HOME OR SELFCARE - Discharge Diagnoses (1) S/P primary low transverse Status: Acute (2) Chronic hypertension Status: Chronic Comment: Known history, prior to . Managed by PCP Continue home BP monitoring Continue antihypertensive therapy with Labetalol 100mg PO BID Plan - Discharge Medications Prescriptions: Ferrous Sulfate [Feosol 325 MG tab] 325 mg PO BID #60 tablet HYDROcodone/APAP 5-325 [[place] 5/325] 1 each PO Q6HR PRN #30 tablet PRN Reason: Pain Ibuprofen [Motrin] 800 mg PO Q8HR PRN #30 tablet PRN Reason: Moder Pain Unrelieved By [place] Vit Calc,Iron,Folic [ Vitamins] 1 each PO DAILY #30 tablet - Provider Discharge Summary Activity: routine, no sex for 6 weeks, no heavy lifting 4 weeks, no strenuous exercise Diet: routine Instructions: routine Additional instructions: [] Smoking cessation referral if applicable(refer to patient education folder for contact #) [] Refer to [facility] Booklet Call your doctor immediately for: * Fever > 100.5 * Heavy vaginal bleeding ( >1 pad per hour) * Severe persistent headache * Shortness of breath * Reddened, hot, painful area to leg or breast * Drainage or odor from incision. * Keep incision clean and dry at all times and follow doctor's instructions regarding bathing/showering - Follow up plan Follow up: YAYA BLANCO MD [Primary Care Provider] - 14 Days (F/U at [facility] in 2 weeks for incision check and in 6 weeks for PP exam Schedule appt with Cassandra Developer for checkup kimmie)
[2017-07-23] MEDS: FEOSOL PO SCH (09:35)
[2017-07-23 11:08] VITALS: BP 100/68
[2017-07-23] MEDS: NORMODYNE PO SCH (11:35)
== END 2017-07-23 12:30 | disposition home or self-care (01) | DRG 765 ==
LOC: LD 10:11 → OB 07-21 08:59
PROVIDERS: ADMIT Obstetrics & Gynecology; ATTEND Obstetrics & Gynecology
PROC: 10D00Z1 Extraction of Products of Conception, Low, Open Approach (ICD-10-PCS; principal; 2017-07-21)
DX: O99.824 Streptococcus B carrier state complicating childbirth (principal); O41.03X0 Oligohydramnios, third trimester, not applicable or unspecified; O10.92 Unspecified pre-existing hypertension complicating childbirth; Z37.0 Single live birth; Z3A.36 36 weeks gestation of pregnancy; O36.5930 Maternal care for other known or suspected poor fetal growth, third trimester, not applicable or unspecified; O99.214 Obesity complicating childbirth; E66.01 Morbid (severe) obesity due to excess calories; O69.81X0 Labor and delivery complicated by cord around neck, without compression, not applicable or unspecified
CPT/HCPCS: 36415; 85014; 85018; 85027; 86592; 86850; 86900; 86901; 88307; 99211; C9250; G0463; J0290; J0690; J1885; J2370; J2590; J2765; J3010; J7120; J7121

== ENCOUNTER 2019-02-28 06:36 | Emergency (ER) | payer MEDICAID, OTHER ==
[2019-02-28 06:44] VITALS: BP 161/106
--- NOTE | 2019-02-28 08:02 | Emergency Department Report ---
- General Chief Complaint: Upper Respiratory Infection Stated Complaint: COUGH WHEEZING Time Seen by Provider: 02/28/19 07:28 Source: patient Mode of arrival: Ambulatory Limitations: No Limitations - History of Present Illness Initial Comments: Patient reports dry cough that started one month ago not relieved with OTC cough meds Complaint: cough Onset/Timin -: month(s) Severity: moderate Severity scale (0 -10): 2 Quality: other Consistency: intermittent Improves With: nothing Worsens With: other (lying down) Context: other (none) Associated Symptoms: cough. denies: fever, chills, myalgias, diaphoresis, headache, rhinorrhea, nasal congestion, sore throat, stiff neck, chest pain, shortness of breath, abdominal pain, nausea, vomiting, diarrhea, dysuria, rash, confusion, right sweats, weight loss, epistaxis, hoarseness, ear pain Treatments Prior to Arrival: "cold medicine" - Related Data Home Medications Medication Instructions Recorded Confirmed Last Taken Labetalol [Normodyne TAB] 100 mg PO BID 04/17/17 07/20/17 07/20/17 07:00 Aspirin [Aspirin EC] 1 tab PO QDAY 07/05/17 07/20/17 07/19/17 19:00 Pnv,Calcium 72/Iron/Folic Acid 1 tab PO QDAY 07/05/17 07/20/17 07/20/17 07:00 [ Vitamin Plus Low Iron] Previous Rx's Medication Instructions Recorded Last Taken Type Ferrous Sulfate [Feosol 325 MG tab] 325 mg PO BID #60 tablet 07/21/17 Unknown Rx HYDROcodone/APAP 5-325 [[place] 1 each PO Q6HR PRN #30 tablet 07/21/17 Unknown Rx 5/325] Ibuprofen [Motrin] 800 mg PO Q8HR PRN #30 tablet 07/21/17 Unknown Rx Vit Calc,Iron,Folic 1 each PO DAILY #30 tablet 07/21/17 Unknown Rx [ Vitamins] Fexofenadine HCl [Emilia Allergy] 180 mg PO DAILY #15 tablet 02/28/19 Unknown Rx guaiFENesin/DEXTROMETHORPHAN 1 each PO BID #20 tab.er.12h 02/28/19 Unknown Rx [Mucinex Dm ER 600-30 mg Tablet] Allergies Allergy/AdvReac Type Severity Reaction Status Date / Time No Known Allergies Allergy Verified 02/28/19 06:44 ED Review of Systems ROS: Stated complaint: COUGH WHEEZING Other details as noted in HPI Constitutional: no symptoms reported Eyes: denies: eye pain, eye discharge, vision change ENT: denies: ear pain, throat pain Respiratory: cough. denies: orthopnea, shortness of breath, SOB with exertion, SOB at rest, stridor, wheezing Cardiovascular: denies: chest pain, palpitations Endocrine: no symptoms reported Gastrointestinal: denies: abdominal pain, nausea, diarrhea Genitourinary: denies: urgency, dysuria, discharge Musculoskeletal: denies: back pain, joint swelling, arthralgia Skin: denies: rash, lesions Neurological: denies: headache, weakness, paresthesias Psychiatric: denies: anxiety, depression Hematological/Lymphatic: denies: easy bleeding, easy bruising ED Past Medical Hx - Past Medical History Previous Medical History?: Yes Hx Hypertension: Yes Hx Congestive Heart Failure: No Hx Diabetes: No Hx Deep Vein Thrombosis: No Hx Renal Disease: No Hx Sickle Cell Disease: No Hx Seizures: No Hx Asthma: No Hx COPD: No Hx HIV: No Additional medical history: bronchitis - Surgical History Past Surgical History?: Yes Additional Surgical History: 2 vaginal delivery- one still born. csection x1 - Social History Smoking Status: Never Smoker Substance Use Type: None - Medications Home Medications: Home Medications Medication Instructions Recorded Confirmed Last Taken Type Labetalol [Normodyne TAB] 100 mg PO BID 04/17/17 07/20/17 07/20/17 07:00 History Aspirin [Aspirin EC] 1 tab PO QDAY 07/05/17 07/20/17 07/19/17 19:00 History Pnv,Calcium 72/Iron/Folic Acid 1 tab PO QDAY 07/05/17 07/20/17 07/20/17 07:00 History [ Vitamin Plus Low Iron] Ferrous Sulfate [Feosol 325 MG tab] 325 mg PO BID #60 tablet 07/21/17 Unknown Rx HYDROcodone/APAP 5-325 [[place] 1 each PO Q6HR PRN #30 tablet 07/21/17 Unknown Rx 5/325] Ibuprofen [Motrin] 800 mg PO Q8HR PRN #30 tablet 07/21/17 Unknown Rx Vit Calc,Iron,Folic 1 each PO DAILY #30 tablet 02/21/18 Unknown Rx [ Vitamins] Fexofenadine HCl [Emilia Allergy] 180 mg PO DAILY #15 tablet 02/28/19 Unknown Rx guaiFENesin/DEXTROMETHORPHAN 1 each PO BID #20 tab.er.12h 02/28/19 Unknown Rx [Mucinex Dm ER 600-30 mg Tablet] ED Physical Exam - General Limitations: No Limitations General appearance: alert, in no apparent distress - Head Head exam: Present: atraumatic, normocephalic - Eye Eye exam: Present: normal appearance - ENT ENT exam: Present: normal orophraynx, mucous membranes moist, TM's normal bilaterally, normal external ear exam, other (nasal turbinates pale and boggy) - Neck Neck exam: Present: normal inspection, full ROM. Absent: tenderness, meningismus, lymphadenopathy, thyromegaly - Respiratory Respiratory exam: Present: normal lung sounds bilaterally. Absent: respiratory distress, wheezes, rales, rhonchi, stridor, chest wall tenderness, accessory muscle use, decreased breath sounds, prolonged expiratory - Cardiovascular Cardiovascular Exam: Present: regular rate, normal rhythm. Absent: systolic murmur, diastolic murmur, rubs, gallop - Neurological Exam Neurological exam: Present: alert, oriented X3, CN II-XII intact, normal gait, motor sensory deficit, reflexes normal - Psychiatric Psychiatric exam: Present: normal affect, normal mood - Skin Skin exam: Present: warm, dry, intact ED Course Vital Signs 02/28/19 02/28/19 06:39 08:59 Temperature 98.5 F Pulse Rate 96 H Respiratory 20 16 Rate Blood Pressure 161/106 O2 Sat by Pulse 97 96 Oximetry ED Medical Decision Making - Lab Data Temp Pulse Resp BP Pulse Ox 98.5 F 96 H 20 161/106 97 02/28/19 06:39 02/28/19 06:39 02/28/19 06:39 02/28/19 06:39 02/28/19 06:39 - Medical Decision Making During the course of ED, all other systems were unremarkable except for documentation in HPI. Patient was sent home with Emilia and guiafenesin, instructed to follow up with PCP this week, he verbalized understanding - Differential Diagnosis URI, Fever Critical care attestation.: If time is entered above; I have spent that time in minutes in the direct care of this critically ill patient, excluding procedure time. ED Disposition Clinical Impression: Upper respiratory infection Qualifiers: URI type: unspecified URI Qualified Code(s): J06.9 - Acute upper respiratory infection, unspecified Disposition: TO HOME OR SELFCARE Is pt being admited?: No Does the pt Need Aspirin: No Condition: Stable Instructions: Upper Respiratory Infection (ED) Additional Instructions: Take medications as directed. Drink plenty of fluids. Return back to the ED for worsening symptoms Prescriptions: Fexofenadine HCl [Emilia Allergy] 180 mg PO DAILY #15 tablet guaiFENesin/DEXTROMETHORPHAN [Mucinex Dm ER 600-30 mg Tablet] 1 each PO BID #20 tab.er.12h Referrals: PRIMARY CAREMD [Primary Care Provider] - 3-5 Days ALIVIA GALAN MD [Staff Physician] - 3-5 Days Forms: Work/School Release Form(ED) Time of Disposition: 08:03
== END 2019-02-28 08:10 | disposition home or self-care (01) ==
LOC: ED 06:36
DX: J06.9 Acute upper respiratory infection, unspecified (principal); I10 Essential (primary) hypertension; Z79.82 Long term (current) use of aspirin; Z79.899 Other long term (current) drug therapy; Z79.1 Long term (current) use of non-steroidal anti-inflammatories (NSAID)
CPT/HCPCS: 99282

== ENCOUNTER 2020-08-28 09:58 | Emergency (ER) | payer MEDICAID ==
--- NOTE | 2020-08-28 11:18 | Emergency Department Report ---
ED HPI - General Chief complaint: Urogenital-Female Stated complaint: BLOOD IN URINE/HIGH BP Time Seen by Provider: 08/28/20 11:10 Source: patient Mode of arrival: Ambulatory Limitations: No Limitations - History of Present Illness Initial comments: 30-year-old -[place] female patient presents with complaints of blood in urine today. Patient states she was seeing her [facility] at [facility] today, when the WEB WEAVER noted there was blood in her urine and referred her to the ED. She states her blood pressure was also elevated at 150/over 80. She does report history of hypertension and hypertension in . Patient not currently on antihypertensive medication. She is G4, . She states there is mild lower abdominal cramping, but denies any urinary symptoms, vaginal discharge/dyspareunia, fever/chills/sweats, or stool changes. Patient also denies any swelling in her extremities - Related Data Home Medications Medication Instructions Recorded Confirmed Last Taken labetaloL [Normodyne TAB] 100 mg PO BID 04/17/17 07/20/17 07/20/17 07:00 Aspirin [Aspirin EC] 1 tab PO QDAY 07/05/17 07/20/17 07/19/17 19:00 Pnv,Calcium 72/Iron/Folic Acid 1 tab PO QDAY 07/05/17 07/20/17 07/20/17 07:00 [ Vitamin Plus Low Iron] Previous Rx's Medication Instructions Recorded Last Taken Type Ferrous Sulfate [Feosol 325 MG tab] 325 mg PO BID #60 tablet 07/21/17 Unknown Rx HYDROcodone/APAP 5-325 [[place] 1 each PO Q6HR PRN #30 tablet 07/21/17 Unknown Rx 5/325] Ibuprofen [Motrin] 800 mg PO Q8HR PRN #30 tablet 07/21/17 Unknown Rx Vit Calc,Iron,Folic 1 each PO DAILY #30 tablet 07/21/17 Unknown Rx [ Vitamins] Fexofenadine HCl [Emilia Allergy] 180 mg PO DAILY #15 tablet 02/28/19 Unknown Rx guaiFENesin/DEXTROMETHORPHAN 1 each PO BID #20 tab.er.12h 02/28/19 Unknown Rx [Mucinex Dm ER 600-30 mg Tablet] labetaloL [Labetalol 100mg TAB] 100 mg PO BID 10 Days #20 tablet 08/28/20 Unknown Rx Allergies Allergy/AdvReac Type Severity Reaction Status Date / Time No Known Allergies Allergy Verified 02/28/19 06:44 ED Review of Systems ROS: Stated complaint: BLOOD IN URINE/HIGH BP Other details as noted in HPI Constitutional: denies: chills, fever, malaise Respiratory: denies: cough, shortness of breath Cardiovascular: denies: chest pain Gastrointestinal: as per HPI. denies: nausea, vomiting, diarrhea, constipation, hematemesis, melena, hematochezia Skin: denies: rash, lesions, change in color Neurological: denies: headache Hematological/Lymphatic: denies: easy bleeding, easy bruising, swollen glands ED Past Medical Hx - Past Medical History Previous Medical History?: Yes Hx Hypertension: Yes Hx Congestive Heart Failure: No Hx Diabetes: No Hx Deep Vein Thrombosis: No Hx Renal Disease: No Hx Sickle Cell Disease: No Hx Seizures: No Hx Asthma: No Hx COPD: No Hx HIV: No Additional medical history: bronchitis - Surgical History Past Surgical History?: Yes Additional Surgical History: 2 vaginal delivery- one still born. csection x1 - Social History Smoking Status: Never Smoker Substance Use Type: None - Medications Home Medications: Home Medications Medication Instructions Recorded Confirmed Last Taken Type labetaloL [Normodyne TAB] 100 mg PO BID 04/17/17 07/20/17 07/20/17 07:00 History Aspirin [Aspirin EC] 1 tab PO QDAY 07/05/17 07/20/17 07/19/17 19:00 History Pnv,Calcium 72/Iron/Folic Acid 1 tab PO QDAY 07/05/17 07/20/17 07/20/17 07:00 History [ Vitamin Plus Low Iron] Ferrous Sulfate [Feosol 325 MG tab] 325 mg PO BID #60 tablet 07/21/17 Unknown Rx HYDROcodone/APAP 5-325 [[place] 1 each PO Q6HR PRN #30 tablet 07/21/17 Unknown Rx 5/325] Ibuprofen [Motrin] 800 mg PO Q8HR PRN #30 tablet 07/21/17 Unknown Rx Vit Calc,Iron,Folic 1 each PO DAILY #30 tablet 07/21/17 Unknown Rx [ Vitamins] Fexofenadine HCl [Emilia Allergy] 180 mg PO DAILY #15 tablet 02/28/19 Unknown Rx guaiFENesin/DEXTROMETHORPHAN 1 each PO BID #20 tab.er.12h 02/28/19 Unknown Rx [Mucinex Dm ER 600-30 mg Tablet] labetaloL [Labetalol 100mg TAB] 100 mg PO BID 10 Days #20 tablet 08/28/20 Unknown Rx ED Physical Exam - General Limitations: No Limitations General appearance: alert, in no apparent distress - Head Head exam: Present: atraumatic, normocephalic - Eye Eye exam: Present: normal appearance. Absent: scleral icterus - Respiratory Respiratory exam: Absent: respiratory distress - Cardiovascular Cardiovascular Exam: Present: regular rate - GI/Abdominal GI/Abdominal exam: Present: soft, tenderness (Minimal lower abdominal tenderness to palpation). Absent: distended, guarding, rebound, rigid - Extremities Exam Extremities exam: Present: full ROM. Absent: other (No swelling noted to upper or lower extremities bilaterally) - Back Exam Back exam: Present: normal inspection - Neurological Exam Neurological exam: Present: alert, oriented X3, normal gait - Psychiatric Psychiatric exam: Present: normal affect, normal mood - Skin Skin exam: Present: warm, dry, intact, normal color. Absent: rash, cyanosis ED Course Vital Signs 08/28/20 10:26 Temperature 98.8 F Pulse Rate 80 Respiratory 16 Rate Blood Pressure 150/81 [Right] O2 Sat by Pulse 100 Oximetry ED Medical Decision Making - Lab Data Result diagrams: 08/28/20 12:57 08/28/20 12:57 Lab Results 08/28/20 08/28/20 08/28/20 Range/Units 12:57 12:57 13:48 WBC 10.3 (4.5-11.0) K/mm3 RBC 4.21 (3.65-5.03) M/mm3 Hgb 12.6 (10.1-14.3) gm/dl Hct 37.5 (30.3-42.9) % MCV 89 (79-97) fl MCH 30 (28-32) pg MCHC 34 (30-34) % RDW 12.8 L (13.2-15.2) % Plt Count 273 (140-440) K/mm3 Lymph % (Auto) 15.8 (13.4-35.0) % [place] % (Auto) 6.1 (0.0-7.3) % Eos % (Auto) 1.2 (0.0-4.3) % Baso % (Auto) 0.6 (0.0-1.8) % Lymph # (Auto) 1.6 (1.2-5.4) K/mm3 [place] # (Auto) 0.6 (0.0-0.8) K/mm3 Eos # (Auto) 0.1 (0.0-0.4) K/mm3 Baso # (Auto) 0.1 (0.0-0.1) K/mm3 Seg Neutrophils % 76.3 H (40.0-70.0) % Seg Neutrophils # 7.9 H (1.8-7.7) K/mm3 Sodium 133 L (137-145) mmol/L Potassium 3.8 (3.6-5.0) mmol/L Chloride 102.6 (98-107) mmol/L Carbon Dioxide 23 (22-30) mmol/L Anion Gap 11 mmol/L BUN 9 (7-17) mg/dL Creatinine 1.2 (0.6-1.2) mg/dL Estimated GFR > 60 ml/min BUN/Creatinine Ratio 8 % Glucose 78 (65-100) mg/dL Calcium 8.8 (8.4-10.2) mg/dL Total Bilirubin 0.30 (0.1-1.2) mg/dL AST 13 (5-40) units/L ALT 10 (7-56) units/L Alkaline Phosphatase 64 (35-129) units/L Total Protein 7.4 (6.3-8.2) g/dL Albumin 3.5 L (3.9-5) g/dL Albumin/Globulin Ratio 0.9 % HCG, Quant 69302 H (0-4) mIU/mL Urine Color (Yellow) Urine Turbidity (Clear) Urine pH (5.0-7.0) Ur Specific [place] (1.003-1.030) Urine Protein (Negative) mg/dL Urine Glucose (UA) (Negative) mg/dL Urine Ketones (Negative) mg/dL Urine Blood (Negative) Urine Nitrite (Negative) Ur Reducing Substances Urine Bilirubin (Negative) Urine Ictotest Urine Urobilinogen (<2.0) mg/dL Ur Leukocyte Esterase (Negative) Urine WBC (Auto) (0.0-6.0) /HPF Urine RBC (Auto) (0.0-6.0) /HPF U Epithel Cells (Auto) (0-13.0) /HPF Urine Bacteria (Auto) (Negative) /HPF Urine Mucus /HPF Urine HCG, Qual (Negative) 08/28/20 Range/Units Unknown WBC (4.5-11.0) K/mm3 RBC (3.65-5.03) M/mm3 Hgb (10.1-14.3) gm/dl Hct (30.3-42.9) % MCV (79-97) fl MCH (28-32) pg MCHC (30-34) % RDW (13.2-15.2) % Plt Count (140-440) K/mm3 Lymph % (Auto) (13.4-35.0) % [place] % (Auto) (0.0-7.3) % Eos % (Auto) (0.0-4.3) % Baso % (Auto) (0.0-1.8) % Lymph # (Auto) (1.2-5.4) K/mm3 [place] # (Auto) (0.0-0.8) K/mm3 Eos # (Auto) (0.0-0.4) K/mm3 Baso # (Auto) (0.0-0.1) K/mm3 Seg Neutrophils % (40.0-70.0) % Seg Neutrophils # (1.8-7.7) K/mm3 Sodium (137-145) mmol/L Potassium (3.6-5.0) mmol/L Chloride (98-107) mmol/L Carbon Dioxide (22-30) mmol/L Anion Gap mmol/L BUN (7-17) mg/dL Creatinine (0.6-1.2) mg/dL Estimated GFR ml/min BUN/Creatinine Ratio % Glucose (65-100) mg/dL Calcium (8.4-10.2) mg/dL Total Bilirubin (0.1-1.2) mg/dL AST (5-40) units/L ALT (7-56) units/L Alkaline Phosphatase (35-129) units/L Total Protein (6.3-8.2) g/dL Albumin (3.9-5) g/dL Albumin/Globulin Ratio % HCG, Quant (0-4) mIU/mL Urine Color Straw (Yellow) Urine Turbidity Clear (Clear) Urine pH 7.0 (5.0-7.0) Ur Specific [place] 1.004 (1.003-1.030) Urine Protein <15 mg/dl (Negative) mg/dL Urine Glucose (UA) Neg (Negative) mg/dL Urine Ketones Neg (Negative) mg/dL Urine Blood Mod (Negative) Urine Nitrite Neg (Negative) Ur Reducing Substances Not Reportable Urine Bilirubin Neg (Negative) Urine Ictotest Not Reportable Urine Urobilinogen < 2.0 (<2.0) mg/dL Ur Leukocyte Esterase Neg (Negative) Urine WBC (Auto) 1.0 (0.0-6.0) /HPF Urine RBC (Auto) 1.0 (0.0-6.0) /HPF U Epithel Cells (Auto) 1.0 (0-13.0) /HPF Urine Bacteria (Auto) 1+ (Negative) /HPF Urine Mucus Few /HPF Urine HCG, Qual Positive A (Negative) - Radiology Data Radiology results: report reviewed FIRSTTRIMESTER OBSTETRIC ULTRASOUND ULTRASOUND OB TRANSVAGINAL HISTORY: Hematuria, high blood pressure COMPARISON: None. TECHNIQUE: Routine transabdominal and transvaginal OB ultrasound performed. FINDINGS: Uterus: The uterus is unremarkable measuring 8.9 x 5.2 x 5.4 cm. Gestational Sac: Well-defined oval shape and intrauterine in location. Yolk Sac: Normal in appearance. Fetus/Embryo: [place]-rump length of 0.45 cm, corresponding to an estimated gestational age of 6 week 1 day. Embryonic/ anatomy is too small for evaluation. Embryonic/ cardiac activity: 109bpm Placenta: Too small for evaluation. Amniotic fluid volume: Subjectively appropriate for gestational age. Ovaries: The right ovary is normal in size and appearance with normal blood flow, measuring 2.7 x 2.2 x 2.6 cm. The left ovary is normal in size and appearance with normal blood flow, measuring 2.6 x 1.0 x 1.7 cm. Hypoechoic space-occupying mass in the right ovary with peripheral vascularity is most likely the corpus luteum. Additional findings: A small subchorionic hemorrhage is noted along the left side of the gestational sac measuring 0.8 x 0.7 cm. Small free pelvic fluid is also noted in the cul-de-sac. IMPRESSION Early live intrauterine . Small subchorionic hemorrhage. - Medical Decision Making 30-year-old -[place] female patient presents with complaints of blood in urine today. Patient states she was seeing her [facility] at [facility] today, when the WEB WEAVER noted there was blood in her urine and referred her to the ED. She states her blood pressure was also elevated at 150/over 80. She does report history of hypertension and hypertension in . Patient not currently on antihypertensive medication. She is G4, . She states there is mild lower abdominal cramping, but denies any urinary symptoms, vaginal discharge/dyspareunia, fever/chills/sweats, or stool changes. Patient also denies any swelling in her extremities Ultrasound shows 6-week IUP with a small subchorionic hemorrhage. UA is normal. Blood pressure noted to be 150/81 here in ED. Discussed patient with Dr. Weber- recommends labetalol 100 mg twice daily. No significant abnormalities noted on labs. Discussed pelvic rest and follow-up with WEB WEAVER in 2 days. Patient is nontoxic-appearing and stable for discharge home. Strict return precautions discussed in detail with patient who verbalized understanding. Critical care attestation.: If time is entered above; I have spent that time in minutes in the direct care of this critically ill patient, excluding procedure time. ED Disposition Clinical Impression: 6 weeks gestation of Subchorionic bleed Qualifiers: Fetus number: single or unspecified fetus Trimester: first trimester Qualified Code(s): O41.8X10 - Other specified disorders of amniotic fluid and membranes, first trimester, not applicable or unspecified Hypertension during Qualifiers: Hypertension in type: pre-existing hypertension Pre-existing hypertension in type: essential hypertension Trimester: first trimester Qualified Code(s): O10.011 - Pre-existing essential hypertension complicating , first trimester Disposition: DC-01 TO HOME OR SELFCARE Is pt being admited?: No Condition: Stable Instructions: Subchorionic Hematoma, Hypertension During , Hypertension (ED) Additional Instructions: Please follow-up with your WEB WEAVER tomorrow for further assessment and treatment of your blood pressure Prescriptions: labetaloL [Labetalol 100mg TAB] 100 mg PO BID 10 Days #20 tablet
[2020-08-28 11:19] LABS: HCG Qualitative,Urine Positive (Negative)
[2020-08-28 11:22] LABS: Bacteria,Urine 1+ /HPF (Negative); Bilirubin,Urine NEG (Negative); Blood,Urine MOD (Negative); Color,Urine Straw (Yellow); Mucus,Urine FEW /HPF; Protein,Urine <15 mg/dL mg/dL (Negative); Urobilinogen,Urine < 2.0 mg/dL (<2.0)
--- NOTE | 2020-08-28 12:10 | Ultrasound Report ---
FIRSTTRIMESTER OBSTETRIC ULTRASOUND ULTRASOUND OB TRANSVAGINAL HISTORY: Hematuria, high blood pressure COMPARISON: None. TECHNIQUE: Routine transabdominal and transvaginal OB ultrasound performed. FINDINGS: Uterus: The uterus is unremarkable measuring 8.9 x 5.2 x 5.4 cm. Gestational Sac: Well-defined oval shape and intrauterine in location. Yolk Sac: Normal in appearance. Fetus/Embryo: [place]-rump length of 0.45 cm, corresponding to an estimated gestational age of 6 week 1 day. Embryonic/ anatomy is too small for evaluation. Embryonic/ cardiac activity: 109bpm Placenta: Too small for evaluation. Amniotic fluid volume: Subjectively appropriate for gestational age. Ovaries: The right ovary is normal in size and appearance with normal blood flow, measuring 2.7 x 2. 2 x 2.6 cm. The left ovary is normal in size and appearance with normal blood flow, measuring 2.6 x 1.0 x 1.7 cm. Hypoechoic space-occupying mass in the right ovary with peripheral vascularity is most likely the corpus luteum. Additional findings: A small subchorionic hemorrhage is noted along the left side of the gestational sac measuring 0.8 x 0.7 cm. Small free pelvic fluid is also noted in the cul-de-sac. IMPRESSION Early live intrauterine . Small subchorionic hemorrhage. Signer Name: Clyde Lopez Jr, MD Signed: 08/28/2020 12:05 PM Workstation Name: [id number]
[2020-08-28 13:19] LABS: Basophils # (Auto) 0.1 K/mm3 (0.0-0.1); Basophils % (Auto) 0.6 % (0.0-1.8); Eosinophils # (Auto) 0.1 K/mm3 (0.0-0.4); Eosinophils % (Auto) 1.2 % (0.0-4.3); Hematocrit 37.5 % (30.3-42.9); Hemoglobin 12.6 gm/dl (10.1-14.3); Lymphocytes # (Auto) 1.6 K/mm3 (1.2-5.4); Lymphocytes % (Auto) 15.8 % (13.4-35.0); Mean Corpuscular HGB Conc 34 % (30-34); Mean Corpuscular Volume 89 fl (79-97); Monocytes # (Auto) 0.6 K/mm3 (0.0-0.8); Monocytes % (Auto) 6.1 % (0.0-7.3); Platelet Count 273 K/mm3 (140-440); Red Blood Count 4.21 M/mm3 (3.65-5.03); Red Cell Distribution Width 12.8 % (13.2-15.2)
[2020-08-28 13:40] LABS: Alanine Aminotransferase 10 units/L (7-56); Albumin 3.5 g/dL (3.9-5); BUN/Creatinine Ratio 8; Blood Urea Nitrogen 9 mg/dL (7-17); Calcium 8.8 mg/dL (8.4-10.2); Hemolysis Index 8
[2020-08-28 15:09] VITALS: BP 148/88
== END 2020-08-28 15:12 | disposition home or self-care (01) ==
LOC: ED 09:58
DX: O20.8 Other hemorrhage in early pregnancy (principal); O16.1 Unspecified maternal hypertension, first trimester; Z3A.01 Less than 8 weeks gestation of pregnancy; Z98.890 Other specified postprocedural states; Z79.899 Other long term (current) drug therapy; Z79.1 Long term (current) use of non-steroidal anti-inflammatories (NSAID)
CPT/HCPCS: 36415; 76801; 76817; 80053; 81001; 81025; 84702; 85025

== ENCOUNTER 2020-09-04 16:04 | Emergency (ER) | payer MEDICAID ==
--- NOTE | 2020-09-04 16:56 | Event Note ---
ED Screening Note Date of service: 09/04/20 Time: 16:55 ED Screening Note: 30-year-old female patient (7 weeks) presents emergency department for evaluation of elevated blood pressure reading today at her OB appointment. She has a history of gestational hypertension and has been taking Labetalol. Medication dosage was increased at today's appointment. To her knowledge, she has never been diagnosed with preeclampsia or eclampsia. She is currently asymptomatic. BP 143/89 in triage. General: Awake, appropriately interactive, no acute distress. Neck: Supple. Full range of motion intact. Cardiovascular: Normal peripheral perfusion. No upper or lower extremity edema. Pulmonary: No respiratory distress. Patient is speaking normally without use of accessory muscles. Skin: No apparent rashes or lesions. Neurological: No facial asymmetry. Speech is clear. Follows commands. Patient is alert and oriented. Musculoskeletal: Moves all four extremities spontaneously with normal range of motion. Psych: Cooperative. Appropriate mood and affect. I have greeted and performed a focused rapid initial assessment of this patient. A comprehensive ED assessment and evaluation of the patient, analysis of all test results, and completion of the medical decision-making process will be conducted by additional ED providers. This initial assessment/diagnostic orders/clinical plan/treatment(s) is/are subject to change based on patients health status, clinical progression and re-assessment. Further treatment and workup at subsequent clinical provider's discretion. Patient/guardian urged not to elope from the ED as their condition may be serious if not clinically assessed and managed.
[2020-09-04 18:43] LABS: Bacteria,Urine 1+ /HPF (Negative); Bilirubin,Urine NEG (Negative); Blood,Urine SM (Negative); Color,Urine Yellow (Yellow); Mucus,Urine FEW /HPF; RBC,Urine < 1.0 /HPF (0.0-6.0)
[2020-09-04 20:22] LABS: Basophils # (Auto) 0.1 K/mm3 (0.0-0.1); Basophils % (Auto) 0.5 % (0.0-1.8); Eosinophils # (Auto) 0.2 K/mm3 (0.0-0.4); Eosinophils % (Auto) 2.2 % (0.0-4.3); Hematocrit 34.3 % (30.3-42.9); Hemoglobin 11.6 gm/dl (10.1-14.3); Lymphocytes # (Auto) 2.6 K/mm3 (1.2-5.4); Lymphocytes % (Auto) 23.5 % (13.4-35.0); Mean Corpuscular HGB Conc 34 % (30-34); Mean Corpuscular Volume 90 fl (79-97); Monocytes # (Auto) 0.8 K/mm3 (0.0-0.8); Monocytes % (Auto) 7.6 % (0.0-7.3); Platelet Count 269 K/mm3 (140-440); Red Cell Distribution Width 13.1 % (13.2-15.2)
[2020-09-04 20:42] LABS: Alanine Aminotransferase 10 units/L (7-56); Albumin 3.1 g/dL (3.9-5); BUN/Creatinine Ratio 7; Blood Urea Nitrogen 7 mg/dL (7-17); Calcium 8.6 mg/dL (8.4-10.2); Hemolysis Index 5
[2020-09-05 01:01] VITALS: BP 161/94
--- NOTE | 2020-09-05 01:30 | Emergency Department Report ---
ED General Adult HPI - General Chief complaint: High BP Stated complaint: ELEVATED BLOOD PRESSURE Source: patient Mode of arrival: Ambulatory Limitations: No Limitations - History of Present Illness Initial comments: Patient is a A1 30-year-old -[place] female who is approximately 7 weeks gestation and with a history of hypertension who presents to the ED with complaint of elevated blood pressure despite taking labetalol 100 mg twice a day for the same, for the last 2 days. Patient states that she was initially evaluated by her [employer] physician about 12 hours ago and at that time her blood pressure was elevated, and she was therefore advised to come to the ED for evaluation. Patient states that her [employer] physician also increased the labetalol dose from 100 mg twice a day to 200 mg twice a day but she is yet to start on the new dose as she is yet to pick the new prescription up from the pharmacy. Patient denies chest pain, shortness of breath, dizziness, syncope, headache, nausea and vomiting, vaginal bleeding, vaginal discharge, abdominal pain, palpitations, change in vision or cough, fever and chills. MD Complaint: Elevated blood pressure; 7 weeks gestation -: Sudden, days(s) (2) Radiation: non-radiation Severity scale (0 -10): 0 Consistency: intermittent Improves with: none Worsens with: none Associated Symptoms: denies other symptoms. denies: confusion, chest pain, cough, diaphoresis, fever/chills, headaches, loss of appetite, malaise, nausea/vomiting, rash, seizure, shortness of breath, syncope, weakness, other Treatments Prior to Arrival: none - Related Data Home Medications Medication Instructions Recorded Confirmed Last Taken labetaloL [Normodyne TAB] 100 mg PO BID 04/17/17 07/20/17 07/20/17 07:00 Aspirin [Aspirin EC] 1 tab PO QDAY 07/05/17 07/20/17 07/19/17 19:00 Pnv,Calcium 72/Iron/Folic Acid 1 tab PO QDAY 07/05/17 07/20/17 07/20/17 07:00 [ Vitamin Plus Low Iron] Previous Rx's Medication Instructions Recorded Last Taken Type Ferrous Sulfate [Feosol 325 MG tab] 325 mg PO BID #60 tablet 07/21/17 Unknown Rx HYDROcodone/APAP 5-325 [[place] 1 each PO Q6HR PRN #30 tablet 07/21/17 Unknown Rx 5/325] Ibuprofen [Motrin] 800 mg PO Q8HR PRN #30 tablet 07/21/17 Unknown Rx Vit Calc,Iron,Folic 1 each PO DAILY #30 tablet 07/21/17 Unknown Rx [ Vitamins] Fexofenadine HCl [Emilia Allergy] 180 mg PO DAILY #15 tablet 02/28/19 Unknown Rx guaiFENesin/DEXTROMETHORPHAN 1 each PO BID #20 tab.er.12h 02/28/19 Unknown Rx [Mucinex Dm ER 600-30 mg Tablet] labetaloL [Labetalol 100mg TAB] 100 mg PO BID 10 Days #20 tablet 08/28/20 Unknown Rx Allergies Allergy/AdvReac Type Severity Reaction Status Date / Time No Known Allergies Allergy Verified 02/28/19 06:44 ED Review of Systems ROS: Stated complaint: ELEVATED BLOOD PRESSURE Other details as noted in HPI Constitutional: denies: chills, fever Eyes: denies: eye pain, eye discharge, vision change ENT: denies: ear pain, throat pain Respiratory: denies: cough, shortness of breath, SOB with exertion, wheezing Cardiovascular: denies: chest pain, palpitations, edema, syncope Endocrine: no symptoms reported Gastrointestinal: denies: abdominal pain, nausea, vomiting, diarrhea, hematochezia Genitourinary: denies: urgency, dysuria, discharge Musculoskeletal: denies: back pain, joint swelling, arthralgia Skin: denies: rash, lesions Neurological: denies: headache, weakness, paresthesias, abnormal gait, vertigo Psychiatric: denies: anxiety, depression Hematological/Lymphatic: denies: easy bleeding, easy bruising ED Past Medical Hx - Past Medical History Hx Hypertension: Yes Hx Congestive Heart Failure: No Hx Diabetes: No Hx Deep Vein Thrombosis: No Hx Renal Disease: No Hx Sickle Cell Disease: No Hx Seizures: No Hx Asthma: No Hx COPD: No Hx HIV: No Additional medical history: bronchitis - Surgical History Additional Surgical History: 2 vaginal delivery- one still born. csection x1 - Social History Smoking Status: Never Smoker Substance Use Type: None - Medications Home Medications: Home Medications Medication Instructions Recorded Confirmed Last Taken Type labetaloL [Normodyne TAB] 100 mg PO BID 04/17/17 07/20/17 07/20/17 07:00 History Aspirin [Aspirin EC] 1 tab PO QDAY 07/05/17 07/20/17 07/19/17 19:00 History Pnv,Calcium 72/Iron/Folic Acid 1 tab PO QDAY 07/05/17 07/20/17 07/20/17 07:00 History [ Vitamin Plus Low Iron] Ferrous Sulfate [Feosol 325 MG tab] 325 mg PO BID #60 tablet 07/21/17 Unknown Rx HYDROcodone/APAP 5-325 [[place] 1 each PO Q6HR PRN #30 tablet 07/21/17 Unknown Rx 5/325] Ibuprofen [Motrin] 800 mg PO Q8HR PRN #30 tablet 07/21/17 Unknown Rx Vit Calc,Iron,Folic 1 each PO DAILY #30 tablet 07/21/17 Unknown Rx [ Vitamins] Fexofenadine HCl [Emilia Allergy] 180 mg PO DAILY #15 tablet 02/28/19 Unknown Rx guaiFENesin/DEXTROMETHORPHAN 1 each PO BID #20 tab.er.12h 02/28/19 Unknown Rx [Mucinex Dm ER 600-30 mg Tablet] labetaloL [Labetalol 100mg TAB] 100 mg PO BID 10 Days #20 tablet 08/28/20 Unknown Rx ED Physical Exam - General Limitations: No Limitations General appearance: alert, in no apparent distress - Head Head exam: Present: atraumatic, normocephalic, normal inspection - Eye Eye exam: Present: normal appearance, PERRL, EOMI Pupils: Present: normal accommodation - ENT ENT exam: Present: normal exam, normal orophraynx, mucous membranes moist, TM's normal bilaterally, normal external ear exam - Neck Neck exam: Present: normal inspection, full ROM - Respiratory Respiratory exam: Present: normal lung sounds bilaterally. Absent: respiratory distress, wheezes, rales, rhonchi, stridor, chest wall tenderness, accessory muscle use, decreased breath sounds, prolonged expiratory - Cardiovascular Cardiovascular Exam: Present: regular rate, normal rhythm, normal heart sounds. Absent: systolic murmur, diastolic murmur, rubs, gallop - GI/Abdominal GI/Abdominal exam: Present: soft, normal bowel sounds. Absent: tenderness, guarding, rebound, hyperactive bowel sounds - Extremities Exam Extremities exam: Present: normal inspection, full ROM, normal capillary refill - Back Exam Back exam: Present: normal inspection, full ROM. Absent: tenderness, CVA tenderness (R), CVA tenderness (L), muscle spasm, paraspinal tenderness - Neurological Exam Neurological exam: Present: alert, oriented X3, CN II-XII intact, normal gait, reflexes normal - Psychiatric Psychiatric exam: Present: normal affect, normal mood, anxious - Skin Skin exam: Present: warm, dry, intact, normal color. Absent: rash ED Course Vital Signs 09/04/20 09/05/20 16:23 01:01 Temperature 98.6 F Pulse Rate 91 H 63 Respiratory 16 17 Rate Blood Pressure 143/89 Blood Pressure 161/94 [Left] O2 Sat by Pulse 99 97 Oximetry ED Medical Decision Making - Lab Data Result diagrams: 09/04/20 20:03 09/04/20 20:03 - Radiology Data Radiology results: report reviewed, image reviewed - Medical Decision Making This is a A1 30-year-old -[place] female who is approximately 7 we eks gestation and with a history of hypertension who presents to the ED with complaint of elevated blood pressure despite taking labetalol 100 mg twice a day for the same, for the last 2 days. Patient states that she was initially evaluated by her [employer] physician about 12 hours ago and at that time her blood pressure was elevated, and she was therefore advised to come to the ED for evaluation. Patient states that her [employer] physician also increased the labetalol dose from 100 mg twice a day to 200 mg twice a day but she is yet to start on the new dose as she is yet to pick the new prescription up from the pharmacy. In the ED, patient is alert and oriented x3 and is not in any distress, and her vital signs are stable with a blood pressure of 143/89. Lab test results were reviewed and are all nonactionable. Based on the patient's history and physical exam findings, patient does not have preeclampsia as her stage is still early. The patient has had chronic hypertension and is currently on medications, and is closely monitored by her [employer] physician. Patient also states that she has an appointment with her [employer] physician first thing today in the morning for further evaluation. Patient was therefore discharged home and advised to continue taking the previously prescribed blood pressure medication labetalol 100 mg twice a day and to follow-up with the [employer] physician as previously scheduled first thing today in the morning for further evaluation. Patient was advised to return to the ED immediately if symptoms get worse. - Differential Diagnosis Hypertension; anxiety; Critical care attestation.: If time is entered above; I have spent that time in minutes in the direct care of this critically ill patient, excluding procedure time. ED Disposition Clinical Impression: Uncontrolled hypertension, stage 1 Disposition: DC- TO HOME OR SELFCARE Is pt being admited?: No Does the pt Need Aspirin: No Condition: Stable Instructions: Hypertension During , [id number], Hypertension, Adult, [id number], Hypertension (ED) Additional Instructions: All lab test results were reviewed and are all nonactionable. Therefore continue taking the previously prescribed blood pressure medication, follow-up with the [employer] physician first thing today in the morning as previously scheduled. Return to the ED immediately if symptoms get worse. Referrals: GARRY JOHNSON MD [Staff Physician] - [facility] Time of Disposition: 01:28 Print Language: PALAUAN
== END 2020-09-05 01:35 | disposition home or self-care (01) ==
LOC: ED 16:04
DX: O16.1 Unspecified maternal hypertension, first trimester (principal); Z79.82 Long term (current) use of aspirin; Z79.899 Other long term (current) drug therapy; Z3A.01 Less than 8 weeks gestation of pregnancy
CPT/HCPCS: 36415; 80053; 81001; 85025; 99283

== ENCOUNTER 2021-02-02 15:15 | Outpatient (CLI) | payer OTHER, MEDICAID ==
[2021-02-02 15:59] VITALS: BP 111/68
[2021-02-02] MEDS ORDERED: LACTATED RINGERS 500 ML IV ONE (16:05)
[2021-02-02 16:21] LABS: Bilirubin,Urine NEG (Negative); Blood,Urine SM (Negative); Color,Urine Straw (Yellow); Protein,Urine <15 mg/dL mg/dL (Negative); Urobilinogen,Urine < 2.0 mg/dL (<2.0)
--- NOTE | 2021-02-02 18:06 | Ultrasound Report ---
ULTRASOUND OBSTETRIC LIMITED ULTRASOUND BIOPHYSICAL PROFILE INDICATION / CLINICAL INFORMATION: Evaluate well being. COMPARISON: OB ultrasound from 08/28/2020. FINDINGS: BREATHING MOVEMENT = 2 GROSS BODY MOVEMENT = 2 TONE = 2 QUALITATIVE AMNIOTIC FLUID VOLUME = 2 TOTAL BIOPHYSICAL SCORE = 8/8 AMNIOTIC FLUID INDEX (cm) = 13.3 PRESENTATION: Cephalic. HEART RATE (beats per minute): 152 ADDITIONAL FINDINGS: None. IMPRESSION: 1. Biophysical Score = 8/8 2. No significant abnormalities. Signer Name: Polo Call MD Signed: 02/02/2021 6:02 PM Workstation Name: [id number]
== END 2021-02-02 18:15 | disposition home or self-care (01) ==
LOC: TRG 15:15 → APU 15:16 → TRG 18:15
PROVIDERS: ATTEND Obstetrics & Gynecology
DX: O26.853 Spotting complicating pregnancy, third trimester (principal); Z3A.28 28 weeks gestation of pregnancy
CPT/HCPCS: 59025; 76815; 76819; 81001

== ENCOUNTER 2021-02-11 09:30 | Outpatient (CLI) | payer OTHER, MEDICAID ==
[2021-02-11] MEDS ORDERED: BETAMET ACET/BETAMET NA PH 6 MG/ML INJ 5 ML MDV IM NR (10:06)
== END 2021-02-11 10:30 | disposition home or self-care (01) ==
LOC: TRG 09:30 → APU 09:32 → TRG 10:30
DX: O16.3 Unspecified maternal hypertension, third trimester (principal); Z3A.30 30 weeks gestation of pregnancy
CPT/HCPCS: 59025; 96372; J0702

== ENCOUNTER 2021-02-12 09:32 | Outpatient (CLI) | payer OTHER, MEDICAID ==
[2021-02-12] MEDS ORDERED: BETAMET ACET/BETAMET NA PH 6 MG/ML INJ 5 ML MDV IM NR (10:00)
== END 2021-02-12 10:06 | disposition home or self-care (01) ==
LOC: TRG 09:32 → APU 09:33 → TRG 10:06
DX: O20.0 Threatened abortion (principal); Z3A.30 30 weeks gestation of pregnancy
CPT/HCPCS: 96372; J0702

== ENCOUNTER 2021-02-13 10:26 | Outpatient (CLI) | payer OTHER, MEDICAID ==
[2021-02-13] MEDS ORDERED: LACTATED RINGERS 1,000 ML IV ONE (12:02)
[2021-02-13 13:24] LABS: Bacteria,Urine 3+ /HPF (Negative); Bilirubin,Urine NEG (Negative); Blood,Urine NEG (Negative); Color,Urine Yellow (Yellow); Mucus,Urine FEW /HPF; Urobilinogen,Urine < 2.0 mg/dL (<2.0)
[2021-02-13] MEDS ORDERED: LACTATED RINGERS 500 ML IV ONE (15:00)
--- NOTE | 2021-02-13 15:12 | Ultrasound Report ---
Limited OB Ultrasound Biophysical profile ultrasound HISTORY: decreased fm. TECHNIQUE: Grayscale and color imaging performed. COMPARISON: Limited OB ultrasound and biophysical profile both from 02/02/2021 FINDINGS: There is a single viable intrauterine gestation with cephalic presentation, GARRET of 9 cm, an d heart rate of 149 bpm. On biophysical profile, the fetus received a score of 2 out of 2 for movement, posture/tone, and GARRET. Score of 0 out of 2 with seen for breathing. Total score was 6 out of 8. IMPRESSION: 1. Single viable intrauterine gestation as above. 2. Biophysical profile score is now 6 out of 8, previously 8 out of 8 approximately 11 days ago. Signer Name: Nahun Jimenez MD Signed: 02/13/2021 3:07 PM Workstation Name: [id number]
--- NOTE | 2021-02-13 15:15 | History and Physical Report ---
History of Present Illness Date of examination: 02/13/21 Chief complaint: non reassuring testing in ob triage poor OB history Past History Past Medical History: hypertension Past Surgical History: section - Obstetrical History Expected Date of Delivery: 04/21/21 Actual Gestation: 30 Week(s) 3 Day(s) : 4 Para: 2 Hx # Term Pregnancies: 2 Number of Pregnancies: 1 Medications and Allergies Allergies Allergy/AdvReac Type Severity Reaction Status Date / Time No Known Allergies Allergy Verified 02/02/21 16:09 Home Medications Medication Instructions Recorded Confirmed Last Taken Type labetaloL [Normodyne TAB] 100 mg PO BID 04/17/17 07/20/17 07/20/17 07:00 History Aspirin [Aspirin EC] 1 tab PO QDAY 07/05/17 07/20/17 07/19/17 19:00 History Pnv,Calcium 72/Iron/Folic Acid 1 tab PO QDAY 07/05/17 07/20/17 07/20/17 07:00 History [ Vitamin Plus Low Iron] Ferrous Sulfate [Feosol 325 MG tab] 325 mg PO BID #60 tablet 07/21/17 Unknown Rx HYDROcodone/APAP 5-325 [[place] 1 each PO Q6HR PRN #30 tablet 07/21/17 Unknown Rx 5/325] Ibuprofen [Motrin] 800 mg PO Q8HR PRN #30 tablet 07/21/17 Unknown Rx Vit Calc,Iron,Folic 1 each PO DAILY #30 tablet 07/21/17 Unknown Rx [ Vitamins] Fexofenadine HCl [Emilia Allergy] 180 mg PO DAILY #15 tablet 02/28/19 Unknown Rx guaiFENesin/DEXTROMETHORPHAN 1 each PO BID #20 tab.er.12h 02/28/19 Unknown Rx [Mucinex Dm ER 600-30 mg Tablet] labetaloL [Labetalol 100mg TAB] 100 mg PO BID 10 Days #20 tablet 08/28/20 Unknown Rx Active Meds: Active Medications Lactated Ringer's (Lactated Ringers) 500 mls @ 999 mls/hr IV BOLUS ONE Stop: 02/13/21 15:30 Cefazolin Sodium 2 gm/ Sodium (Chloride) 100 mls @ 200 mls/hr IV ONCE ONE; Protocol Stop: 02/13/21 16:29 Review of Systems All systems: negative (decreased movement) - Vital Signs Vital signs: Vital Signs Pulse Pulse Ox 82 100 02/13/21 11:13 02/13/21 11:13 Temp Pulse Resp BP Pulse Ox 98.6 F 82 20 126/77 100 02/13/21 12:05 02/13/21 15:10 02/13/21 12:05 02/13/21 14:50 02/13/21 15:10 - Physical Exam Breasts: Positive: deferred Cardiovascular: Regular rate Lungs: Positive: Clear to auscultation Abdomen: Positive: normal appearance, normal bowel sounds Genitourinary (Female): Positive: normal external genitalia, normal perenium Anus/Rectum: Positive: normal perianal skin Extremities: Positive: normal Deep Tendon Reflex Grade: Normal +2 - Obstetrical FHR: category 2 (minimal variability) Results Abnormal lab results 02/13/21 Range/Units Unknown Urine WBC (Auto) 19.0 H (0.0-6.0) /HPF U Epithel Cells (Auto) 18.0 H (0-13.0) /HPF All other labs normal. Assessment and Plan admission for observation [facility] records steroids labetalol continuous monitoring UTI: ancef repat BPP/GARRET in AM Vanessa Nuno MD
[2021-02-13 16:02] LABS: Hematocrit 32.8 % (30.3-42.9); Mean Corpuscular HGB Conc 33 % (30-34); Mean Corpuscular Volume 92 fl (79-97); Platelet Count 268 K/mm3 (140-440); Red Blood Count 3.57 M/mm3 (3.65-5.03); Red Cell Distribution Width 13.6 % (13.2-15.2)
[2021-02-13 20:02] LABS: Total Cells Counted 100
[2021-02-13] MEDS ORDERED: LACTATED RINGERS 1,000 ML ONE (22:05)
[2021-02-14] MEDS ORDERED: LACTATED RINGERS 1,000 ML ONE (07:07)
--- NOTE | 2021-02-14 09:39 | Ultrasound Report ---
LIMITED OBSTETRIC ULTRASOUND WITH BIOPHYSICAL PROFILE HISTORY: well-being. Clinical gestational age 30 weeks 4 days COMPARISON: Obstetric ultrasound one day prior TECHNIQUE: Limited OB ultrasound performed with biophysical profile. FINDINGS: Gestation: [place] intrauterine fetus. Presentation: Cephalic Amniotic Fluid Index: 13.0 cm ANATOMY: Detailed anatomic survey was not requested. heart rate measures 157 beats per minute. BIOPHYSICAL PROFILE: Movement: 2 Tone: 2 Breathin Amniotic Fluid: 2 Total: 6 out of 8 IMPRESSION 1. Single living intrauterine . Normal GARRET of 13.0 cm 2. Biophysical Profile 6 out of 8, unchanged from ultrasound one day prior. Signer Name: Tahmina Lanza MD Signed: 02/14/2021 9:35 AM Workstation Name: [id number]
[2021-02-14] MEDS ORDERED: BETAMET ACET/BETAMET NA PH 6 MG/ML INJ 5 ML MDV IM SCH (10:00)
[2021-02-14 15:11] VITALS: BP 133/78
== END 2021-02-14 14:02 | disposition home or self-care (01) ==
LOC: TRG 10:26 → APU 10:28 → LD 15:41 → TRG 02-14 14:02
PROVIDERS: ATTEND Obstetrics & Gynecology
DX: O23.43 Unspecified infection of urinary tract in pregnancy, third trimester (principal); O36.8130 Decreased fetal movements, third trimester, not applicable or unspecified; O10.913 Unspecified pre-existing hypertension complicating pregnancy, third trimester; Z3A.30 30 weeks gestation of pregnancy; Z79.899 Other long term (current) drug therapy; Z20.822 Contact with and (suspected) exposure to COVID-19
CPT/HCPCS: 36415; 76815; 76819; 81001; 85007; 85025; 86850; 86900; 86901; 87086; 96361; 96365; 96366; J0690; J7120; U0003

== ENCOUNTER 2021-02-21 08:19 | Outpatient (CLI) | payer OTHER, MEDICAID ==
[2021-02-21 08:32] VITALS: BP 117/87
--- NOTE | 2021-02-21 14:20 | Ultrasound Report ---
Biophysical profile Ultrasound HISTORY: BPP. TECHNIQUE: Grayscale and color imaging performed. COMPARISON: Biophysical profile from 02/14/2021 FINDINGS: The fetus received a score of 2 out of 2 for breathing, movement, posture/tone, and GARRET. To sandy score was 8 out of 8. Heart rate during this portion of the exam was 152 bpm. IMPRESSION: Normal biophysical profile. Signer Name: Nahun Jimenez MD Signed: 02/21/2021 2:15 PM Workstation Name: [id number]
== END 2021-02-21 10:45 | disposition home or self-care (01) ==
LOC: TRG 08:19 → APU 08:20 → TRG 10:45
PROVIDERS: ATTEND Obstetrics & Gynecology
DX: O36.8130 Decreased fetal movements, third trimester, not applicable or unspecified (principal); Z3A.36 36 weeks gestation of pregnancy
CPT/HCPCS: 76815; 76819

== ENCOUNTER 2021-02-26 10:46 | Inpatient (IN) | payer OTHER, MEDICAID ==
--- NOTE | 2021-02-26 11:13 | History and Physical Report ---
History of Present Illness Date of examination: 02/26/21 Date of admission: 02/27/2021 Chief complaint: ERCS History of present illness: 30yo at 32.2 weeks, previous c/sectionx1 with IUGR and absent end diastolic flow PNC at [facility] Past History Past Medical History: hypertension Past Surgical History: section Family/Genetic History: none Social history: no significant social history - Obstetrical History Expected Date of Delivery: 04/21/21 Actual Gestation: 32 Week(s) 2 Day(s) : 4 Para: 1 Medications and Allergies Allergies Allergy/AdvReac Type Severity Reaction Status Date / Time No Known Allergies Allergy Verified 02/21/21 08:32 Home Medications Medication Instructions Recorded Confirmed Last Taken Type labetaloL [Normodyne TAB] 100 mg PO BID 04/17/17 02/21/21 02/20/21 History Aspirin [Aspirin EC] 1 tab PO QDAY 07/05/17 02/21/21 02/20/21 History Ferrous Sulfate [Feosol 325 MG tab] 325 mg PO BID #60 tablet 07/21/17 02/21/21 02/20/21 Rx Vit Calc,Iron,Folic 1 each PO DAILY #30 tablet 07/21/17 02/21/21 02/20/21 Rx [ Vitamins] Review of Systems All systems: negative (no OB complaints) - Physical Exam Breasts: Positive: deferred Cardiovascular: Regular rate Lungs: Positive: Clear to auscultation Abdomen: Positive: normal appearance, soft, normal bowel sounds Genitourinary (Female): Positive: normal external genitalia, normal perenium Vagina: Positive: normal moisture Anus/Rectum: Positive: normal perianal skin Deep Tendon Reflex Grade: Normal +2 - Obstetrical FHR: category 1 Results Result Diagrams: 02/26/21 Unknown All other labs normal. 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
[2021-02-26] MEDS ORDERED: BICITRA ORAL LIQD 30ML PO NR (11:30)
[2021-02-26] MEDS ORDERED: METOCLOPRAMIDE 10 MG/2 ML INJ IV NR (11:30)
[2021-02-26] MEDS ORDERED: FAMOTIDINE 20 MG/2 ML INJ IV NR (11:30)
[2021-02-26] MEDS ORDERED: NalbUPHINE 10 MG/1 ML INJ IV PRN ×2 (12:00→14:30)
[2021-02-26] MEDS ORDERED: ceFAZolin/Water 2 GM/20 ML 2 GM/20 ML SYRINGE IV NR (12:00)
[2021-02-26] MEDS ORDERED: OXYTOCIN DRIP 30 UNITS/500 ML BAG IV SCH (12:00)
[2021-02-26] MEDS ORDERED: TERBUTALINE 1 MG/1 ML INJ SUB-Q PRN (12:30)
[2021-02-26] MEDS ORDERED: ACETAMINOPHEN 325 MG TAB PO PRN (12:30)
[2021-02-26] MEDS ORDERED: fentaNYL 100 MCG/2 ML INJ IV PRN (12:30)
[2021-02-26] MEDS ORDERED: miSOPROStol 200 MCG TAB PR PRN (12:30)
[2021-02-26 12:41] LABS: Basophils % (Auto) 0.4 % (0.0-1.8); Eosinophils # (Auto) 0.2 K/mm3 (0.0-0.4); Eosinophils % (Auto) 1.4 % (0.0-4.3); Hematocrit 35.8 % (30.3-42.9); Hemoglobin 12.5 gm/dl (10.1-14.3); Lymphocytes # (Auto) 1.3 K/mm3 (1.2-5.4); Lymphocytes % (Auto) 11.6 % (13.4-35.0); Mean Corpuscular HGB Conc 35 % (30-34); Mean Corpuscular Volume 90 fl (79-97); Monocytes # (Auto) 0.8 K/mm3 (0.0-0.8); Platelet Count 256 K/mm3 (140-440); Red Blood Count 3.97 M/mm3 (3.65-5.03); Red Cell Distribution Width 13.5 % (13.2-15.2)
[2021-02-26] MEDS ORDERED: ONDANSETRON 4 MG/2 ML INJ ONE ×2 (14:00→14:01)
[2021-02-26 14:01] LABS: Basophils % (Auto) 0.3 % (0.0-1.8); Eosinophils # (Auto) 0.2 K/mm3 (0.0-0.4); Eosinophils % (Auto) 1.5 % (0.0-4.3); Hematocrit 31.5 % (30.3-42.9); Hemoglobin 11.2 gm/dl (10.1-14.3); Lymphocytes # (Auto) 1.5 K/mm3 (1.2-5.4); Lymphocytes % (Auto) 12.1 % (13.4-35.0); Mean Corpuscular HGB Conc 36 % (30-34); Mean Corpuscular Volume 89 fl (79-97); Monocytes # (Auto) 0.9 K/mm3 (0.0-0.8); Monocytes % (Auto) 7.2 % (0.0-7.3); Platelet Count 244 K/mm3 (140-440); Red Blood Count 3.53 M/mm3 (3.65-5.03); Red Cell Distribution Width 13.5 % (13.2-15.2)
[2021-02-26] MEDS ORDERED: BUPIVACAINE/PF (0.5%) 5 MG/1 ML 30 ML VIAL INFILTRATI ONE (14:01)
[2021-02-26] MEDS ORDERED: dexAMETHasone 20 MG/5 ML VIAL ONE (14:01)
[2021-02-26] MEDS ORDERED: KETOROLAC 30 MG/1 ML INJ ONE (14:01)
[2021-02-26] MEDS ORDERED: diphenhydrAMINE 50 MG/ML VIAL IV PRN (14:30)
[2021-02-26] MEDS ORDERED: PROMETHAZINE 25 MG RECT SUPP PR PRN (14:30)
[2021-02-26] MEDS ORDERED: ONDANSETRON 4 MG/2 ML INJ IV PRN (14:30)
[2021-02-26] MEDS ORDERED: PROMETHAZINE 25 MG TAB PO PRN (14:30)
[2021-02-26] MEDS ORDERED: NALOXONE 0.4 MG/1 ML INJ IV PRN ×2 (14:30→17:38)
[2021-02-26] MEDS ORDERED: HYDROmorphone 1 MG/1 ML INJ IV PRN (14:30)
--- NOTE | 2021-02-26 14:59 | Procedure Note ---
OB Delivery Note - Delivery Date of Delivery: 02/26/21 Surgeon: GARRY JOHNSON Estimated blood loss: other (900ml) - Section Preop diagnosis: desires sterilization Postop diagnosis: same section procedure: repeat low transverse, bilateral tubal ligation Disposition: PACU Complications: none Narrative: Preop diagnosis: IUP at 32.2 weeks, severe IUGR with reverse end diastolic flow,previous IUFD at term Postop diagnosis: Same Procedure: Repeat low transverse section via Pfannenstiel incision with Mofied [place] Bilateral Tubal ligation Surgeon: Dr. Garry Johnson Anesthesia spinal Complications none EBL 650ml IV fluids 1600mL Urine output 150mL, clear Drains Yepez to gravity Findings: Viable male with weight 1340gms and APGAR8/9, normal uterus tubes and ovaries bilaterally Procedure: Patient was consented in OB triage, taken to the operating room where she received excellent spinal anesthesia. She was then placed in the dorsal supine position with a leftward tilt. The abdomen was prepped and draped in a sterile fashion, and a timeout was verified. Adequate anesthesia was confirmed prior to the skin incision. A Pfannenstiel skin incision was made with a scalpel taken down to the underlying structures and the fascia was incised in the midline. The incision was extended laterally with curved Solo scissors, the superior and inferior aspects of the fascial incisions were grasped with Sailaja clamps and the rectus muscles dissected sharply. The abdomen was entered bluntly in the midline carried down inferiorly with good visualization of the bladder. The vesicouterine peritoneum was tented with Swedish forceps and incised in the midline with Metzenbaum scissors and the vesicouterine peritoneum taken down sharply. The uterine incision was then made sharply with a scalpel. The inferior and superior aspect of the uterine incisio ns were extended bluntly, the baby's head was delivered atraumatically. The remainder of the delivery was uncomplicated, no nuchal cord. The cord was clamped and cut and baby handed to waiting NICU team. An intact placenta with three-vessel cord delivered manually. The uterus was then cleared of all clots and debris and the uterus exteriorized. The uterine incision was closed in 2 layers of 0 vicryl with excellent hemostasis. Attention then turned to the fallopian tubes which were suture ligated in the usual fashion with excellent hemostasis. The abdomen was then irrigated with warm normal saline and the uterus placed back into the abdomen atraumatically. A second look at the uterine incision assured hemostasis. The peritoneum was closed with 3-0 Vicryl, the rectus muscles approximated with 3-0 Vicryl, and the fascia closed with 0 Vicryl in the usual fashion. The subcuticular structures were closed with interrupted sutures of 3-0 Vicryl and the skin closed with 4-0 Monocryl. A pressure dressing was applied. All sponge needle and instrument counts were correct x2. There were no complications. Mom and baby stable to PACU. EBL 650 mL Vanessa Johnson MD
--- NOTE | 2021-02-26 15:04 | Anesthesia Consultation ---
Anesthesia Consult and Med Hx Date of service: 02/26/21 - Airway Anesthetic Teeth Evaluation: Good ROM Head & Neck: Adequate Mental/Hyoid Distance: Adequate Mallampati Class: Class III Intubation Access Assessment: Possibly Difficult - Pulmonary Exam CTA: Yes - Cardiac Exam Cardiac Exam: RRR - Pre-Operative Health Status ASA Pre-Surgery Classification: ASA2 Proposed Anesthetic Plan: Spinal Nerve Block: TAP - Pulmonary Hx Smoking: No Hx Asthma: No COPD: No Hx Pneumonia: No Hx Sleep Apnea: No - Cardiovascular System Hx Hypertension: Yes (taking antihypertensives since 2018) Hx Heart Attack/AMI: No Hx Angina: No - Central Nervous System Hx Seizures: No Hx Psychiatric Problems: No - Gastrointestinal Hx Gastroesophageal Reflux Disease: No - Endocrine Hx Renal Disease: No Hx End Stage Renal Disease: No Hx Liver Disease: No Hx Insulin Dependent Diabetes: No Hx Non-Insulin Dependent Diabetes: No Hx Hypothyroidism: No Hx Hyperthyroidism: No - Hematic Hx Anemia: Yes Hx Sickle Cell Disease: No - Other Systems Hx Alcohol Use: No Hx Obesity: Yes
--- NOTE | 2021-02-26 15:04 | Anesthesia Day of Surgery ---
Anesthesia Day of Surgery - Day of Surgery Patient Examined: Yes Patient H&P Reviewed: Yes Patient is NPO: Yes (breakfast @0700) Beta Blockers: No Cardiac Clearance: No Pulmonary Clearance: No Harshad's Test: N/A
[2021-02-26] MEDS: LACTATED RINGERS 1,000 ML IV SCH ×2 (15:20→19:59)
[2021-02-26] MEDS ORDERED: ceFAZolin/STERILE WATER 2 GM/20 ML SYRINGE IV ONE (16:15)
--- NOTE | 2021-02-26 16:32 | Progress Note ---
Spinal Anesthesia Block - Spinal Anesthesia Block Start Time: 16:18 Stop Time: 16:24 Performed by:: [facility] Procedure: Spinal anesthesia block is being performed for [C/S]. H&P, labs have been reviewed. Patient's questions and concerns have been answered. Informed consent has been performed. Timeout has was performed. Patient in sitting position on side of bed. Sterile prep and drape was performed. 3 mL 1% lid ocaine skin wheal at L [3]-L [4]. Needle introducer advanced. 25-gauge spinal needle advanced, [+] CSF [-] blood. [Marcaine 10mg and Precedex 5mcg] Spinal dose was given. All needles removed. Patient tolerated procedure well.
[2021-02-26] MEDS ORDERED: PHENYLEPHRINE/NS 1,000 MCG/10 ML SYRINGE (OR USE) IV ONE (17:30)
[2021-02-26] MEDS ORDERED: WITCH HAZEL/ GLYCERIN PAD TP PRN (17:38)
[2021-02-26] MEDS ORDERED: LANOLIN/ZINC/DIMETHICONE (LANSINOH) 7 GM TP PRN (17:38)
[2021-02-26] MEDS ORDERED: HYDROcodone/ACETAMINOPHEN 5-325 MG TAB PO PRN (17:38)
[2021-02-26] MEDS ORDERED: MORPHINE 2 MG/1 ML INJ IV PRN (17:38)
[2021-02-26] MEDS: MORPHINE 4 MG/1 ML INJ IV PRN ×2 (19:59→23:59)
[2021-02-26] MEDS ORDERED: D5W/LACTATED RINGERS 1,000 ML IV SCH (22:00)
[2021-02-27] MEDS: MORPHINE 4 MG/1 ML INJ IV PRN ×3 (03:17→17:00)
--- NOTE | 2021-02-27 04:49 | Progress Note ---
Subjective - Subjective Date of service: 02/27/21 Interval history: POD#1 stable incision c/d/i routine PP care Vanessa Nuno MD Patient reports: appetite normal, voiding normally, pain well controlled, ambulating normally : doing well Objective - Vital Signs Latest vital signs: Vital Signs Temp Pulse Resp BP BP Pulse Ox Pulse Ox 02/26/21 23:45 99.1 F 101 H 18 100/65 97 02/26/21 20:05 97 02/26/21 19:45 99.3 F 74 20 90/46 97 02/26/21 19:17 82 18 91/52 97 02/26/21 19:15 98.4 F 84 16 88/53 97 02/26/21 19:00 88 16 102/61 98 02/26/21 18:45 98.2 F 17 92/62 97 02/26/21 18:30 95 H 17 94/58 98 02/26/21 18:15 93 H 12 96/58 99 02/26/21 17:55 93 H 14 113/74 100 02/26/21 17:50 102 H 16 97/64 100 02/26/21 17:45 105 H 18 106/46 100 02/26/21 17:42 98.2 F 98 H 12 112/34 100 02/26/21 15:33 93 H 99 02/26/21 15:28 101 H 98 02/26/21 15:23 100 H 99 02/26/21 15:18 99 H 99 02/26/21 15:13 100 H 98 02/26/21 15:08 99 H 99 02/26/21 15:03 94 H 98 02/26/21 14:58 96 H 99 02/26/21 14:53 99 H 98 02/26/21 14:48 95 H 100 02/26/21 14:43 106 H 99 02/26/21 14:38 94 H 99 02/26/21 14:33 99 H 99 02/26/21 14:28 93 H 99 02/26/21 14:23 94 H 99 02/26/21 14:21 110 H 110/70 02/26/21 14:18 93 H 99 02/26/21 14:13 103 H 98 02/26/21 14:08 98 H 98 02/26/21 14:03 102 H 98 02/26/21 13:58 94 H 98 02/26/21 13:53 95 H 99 02/26/21 13:52 90 99/60 02/26/21 13:48 94 H 99 02/26/21 13:43 88 100 02/26/21 13:38 90 100 02/26/21 13:33 93 H 99 02/26/21 13:28 89 99 02/26/21 13:23 94 H 100 02/26/21 13:21 93 H 114/69 02/26/21 13:18 94 H 100 02/26/21 13:13 96 H 100 02/26/21 13:09 90 87 02/26/21 13:08 90 97 02/26/21 13:03 83 99 02/26/21 12:58 91 H 100 02/26/21 12:53 83 99 02/26/21 12:51 90 118/73 02/26/21 12:48 95 H 99 02/26/21 12:43 87 99 02/26/21 12:38 95 H 99 02/26/21 12:33 85 100 02/26/21 12:28 97 H 100 02/26/21 12:23 97 H 100 02/26/21 12:20 90 118/73 02/26/21 12:18 95 H 99 02/26/21 12:13 91 H 99 02/26/21 12:08 94 H 99 02/26/21 12:05 100 H 112/76 02/26/21 12:03 96 H 98 02/26/21 11:59 72 87 02/26/21 11:58 92 H 98 02/26/21 11:53 89 99 02/26/21 11:50 96 H 114/78 02/26/21 11:48 94 H 99 02/26/21 11:43 94 H 99 02/26/21 11:38 96 H 99 02/26/21 11:37 99 02/26/21 11:35 92 H 114/82 02/26/21 11:33 93 H 98 02/26/21 11:28 92 H 99 02/26/21 11:23 95 H 99 02/26/21 11:22 98.4 F 91 H 20 112/84 99 02/26/21 11:20 89 112/84 02/26/21 11:18 99 H 99 Intake and Output 02/26/21 02/26/21 02/27/21 15:59 23:59 07:59 Intake Total 1000 2125 Output Total 200 300 Balance 1000 1925 -300 Intake: IV 1000 5 Lactated Ringers 1,000 ml 1000 @ 2250 mls/hr IV [facility]OP [facility] Rx#:[id number] Right Wrist 125 Output: Urine 200 300 Indwelling Catheter 300 Other: Total, Output Amount 300 Weight 100.698 kg Estimated Blood Loss 650 - Exam Breasts: Present: deferred Cardiovascular: Present: Regular rate Lungs: Present: Clear to auscultation Abdomen: Present: normal appearance, normal bowel sounds Uterus: Present: fundal height below umbilicus Extremities: Present: normal Deep Tendon Reflex Grade: Normal +2 Incision: Present: normal, dry, dressed - Labs Labs: Abnormal lab results 02/26/21 02/26/21 Range/Units 13:44 Unknown WBC 12.3 H 11.6 H (4.5-11.0) K/mm3 RBC 3.53 L (3.65-5.03) M/mm3 MCHC 36 H 35 H (30-34) % Lymph % (Auto) 12.1 L 11.6 L (13.4-35.0) % [place] # (Auto) 0.9 H (0.0-0.8) K/mm3 Seg Neutrophils % 78.9 H 79.6 H (40.0-70.0) % Seg Neutrophils # 9.7 H 9.2 H (1.8-7.7) K/mm3
[2021-02-27] MEDS: oxyCODONE /ACETAMINOPHEN 5-325MG TAB PO PRN ×2 (05:30→22:52)
[2021-02-27 07:44] LABS: Hematocrit 26.4 % (30.3-42.9); Hemoglobin 9.1 gm/dl (10.1-14.3)
--- NOTE | 2021-02-27 20:18 | Post Anesthesia Evaluation ---
- Post Anesthesia Evaluation Patient Participated: Yes Airway Patent: Yes Stable Respiratory Function: Yes Nausea/Vomiting: No Temp > 96.8F: Yes Pain Manageable: Yes Adequeate Hydration: Yes Anesthesia Complications: No Block Receding Appropriately: Yes
[2021-02-28] MEDS: oxyCODONE /ACETAMINOPHEN 5-325MG TAB PO PRN (05:25)
[2021-02-28] MEDS: MAGNESIUM HYDROXIDE (MOM) ORAL LIQD UDC PO SCH (09:34)
[2021-02-28] MEDS ORDERED: FERROUS SULFATE 325 MG TAB PO SCH (11:00)
--- NOTE | 2021-02-28 12:49 | Progress Note ---
Assessment and Plan A: /postop day 2 S/P repeat LTCS with BTL. Anemia. P: Continue routine /postop care . Encouraged patient to ambulate. Supplement with iron. Subjective - Subjective Date of service: 02/28/21 Principal diagnosis: /postop day 2 S/P repeat LTCS with BTL Patient reports: appetite normal, voiding normally, pain well controlled, flatus, ambulating normally, no dizzy ambulation, no nauseated [place]: in NICU Objective - Vital Signs Latest vital signs: Vital Signs Temp Pulse Resp BP BP Pulse Ox Pulse Ox 02/28/21 07:59 97.9 F 129 H 19 112/79 98 02/28/21 07:58 97.9 F 130 H 19 118/79 99 02/28/21 06:25 18 02/28/21 05:25 18 02/27/21 23:52 18 02/27/21 23:13 98.5 F 129 H 20 120/84 97 02/27/21 22:52 18 02/27/21 20:00 98 02/27/21 17:00 16 02/27/21 15:57 98.5 F 100 H 20 120/82 99 02/27/21 12:49 97.9 F 97 H 20 118/76 98 Intake and Output 02/27/21 02/28/21 02/28/21 23:59 07:59 15:59 Intake Total 600 240 Balance 600 240 Intake: Oral 240 240 Intake, Free Water 360 Other: Total, Intake Amount 120 120 # Voids Void 1 1 - Exam Cardiovascular: Present: Regular rate Lungs: Present: Clear to auscultation Abdomen: Present: normal appearance, soft, normal bowel sounds. Absent: distention, tenderness, guarding, rigidity Uterus: Present: normal, firm, fundal height below umbilicus. Absent: bogginess, tenderness Extremities: Present: normal, edema (mild pedal edema bilaterally). Absent: tenderness Incision: Present: dry, intact
[2021-02-28] MEDS: IBUPROFEN 600 MG TAB PO PRN ×2 (12:55→23:56)
--- NOTE | 2021-03-01 05:36 | Event Note ---
Date: 03/01/21 Patient with fluctuating heart rate. Patient denies pain. Was low hundreds, now 120s. Patient denies dizziness, chest pain, shortness of breath, cough, leg pain, heavy bleeding, or any other symptoms. Has had minimal lochia. Abdomen is soft and nontender. Legs are without pain or edema. Patient denies any history of tachycardia. CBC, CMP, urinalysis, urine culture, blood cultures, chest x- ray, EGK, and hospitalist consult ordered. Consulted with Dr. Castellano re: this patient.
--- NOTE | 2021-03-01 06:14 | XRay Report ---
CHEST 1 VIEW INDICATION / CLINICAL INFORMATION: tachycardia. FINDINGS: SUPPORT DEVICES: None. HEART / MEDIASTINUM: No significant abnormality. LUNGS / PLEURA: No significant pulmonary or pleural abnormality. No pneumothorax. ADDITIONAL FINDINGS: No significant additional findings. IMPRESSION: 1. No acute findings. Signer Name: Talat Perez MD Signed: 03/01/2021 6:09 AM Workstation Name: [id number]
[2021-03-01 07:19] LABS: Basophils % (Auto) 0.2 % (0.0-1.8); Eosinophils # (Auto) 0.1 K/mm3 (0.0-0.4); Eosinophils % (Auto) 1.4 % (0.0-4.3); Hematocrit 22.2 % (30.3-42.9); Lymphocytes # (Auto) 1.6 K/mm3 (1.2-5.4); Mean Corpuscular HGB Conc 36 % (30-34); Mean Corpuscular Volume 90 fl (79-97); Monocytes # (Auto) 0.7 K/mm3 (0.0-0.8); Monocytes % (Auto) 7.4 % (0.0-7.3); Platelet Count 200 K/mm3 (140-440); Red Blood Count 2.46 M/mm3 (3.65-5.03); Red Cell Distribution Width 13.5 % (13.2-15.2)
--- NOTE | 2021-03-01 07:42 | Event Note ---
Date: 03/01/21 CBC results back. Hemoglobin dropped from 9.1 to 8.0 and hematocrit dropped from 26.4 to 22.2. Patient has tachycardia. Ordered 1 unit of PRBCs. Patient and nurse and Dr. Castellano notified.
[2021-03-01] MEDS ORDERED: SODIUM CHLORIDE 0.9% 250ML 250 ML ONE (08:08)
[2021-03-01 08:24] LABS: Bilirubin,Urine NEG (Negative); Blood,Urine LG (Negative); Color,Urine Yellow (Yellow); Mucus,Urine FEW /HPF; Protein,Urine <15 mg/dL mg/dL (Negative); Urobilinogen,Urine < 2.0 mg/dL (<2.0)
[2021-03-01] MEDS ORDERED: SODIUM CHLORIDE 0.9% 500 ML 500 ML IV SCH (09:00)
--- NOTE | 2021-03-01 10:17 | Progress Note ---
Assessment and Plan pt improving. possible d/c in am. Subjective - Subjective Date of service: 03/01/21 Principal diagnosis: /postop day 2 S/P repeat LTCS with BTL Interval history: had one unit of blood today. Patient reports: appetite normal, voiding normally, pain well controlled, ambulating normally Objective - Vital Signs Latest vital signs: Vital Signs Temp Pulse Resp BP Pulse Ox Pulse Ox 03/01/21 08:41 98 03/01/21 07:49 97.9 F 119 H 18 123/71 98 03/01/21 05:40 98 03/01/21 04:45 127 H 105/61 97 03/01/21 03:30 98 03/01/21 01:30 98 03/01/21 00:20 98.4 F 122 H 20 131/78 96 02/28/21 23:55 97 02/28/21 21:40 97 02/28/21 20:53 118 H 116/72 100 02/28/21 19:45 98 02/28/21 17:29 98.1 F 107 H 18 112/62 98 02/28/21 13:21 98.1 F 102 H 19 109/65 98 Intake and Output 02/28/21 03/01/21 03/01/21 23:59 07:59 15:59 Intake Total 360 610 0 Balance 360 610 0 Intake: Oral 360 610 Blood Product 0 Leukoreduced Red Blood 0 Cells Unit [id number] Other: Total, Intake Amount 240 130 # Voids Void 1 1 # Bowel Movements 1 - Exam Cardiovascular: Present: Other (tachycardia.) Lungs: Present: Clear to auscultation, Normal air movement Abdomen: Present: normal appearance, soft Extremities: Present: normal Incision: Present: normal, dry, intact - Labs Labs: Abnormal lab results 03/01/21 03/01/21 Range/Units 06:53 08:36 RBC 2.46 L (3.65-5.03) M/mm3 Hgb 8.0 L (10.1-14.3) gm/dl Hct 22.2 L (30.3-42.9) % MCH 33 H (28-32) pg MCHC 36 H (30-34) % [place] % (Auto) 7.4 H (0.0-7.3) % Seg Neutrophils % 75.0 H (40.0-70.0) % Crossmatch See Detail
--- NOTE | 2021-03-01 11:20 | Consultation ---
History of Present Illness - Reason for Consult Consult date: 03/01/21 Reason for consult: anxiety - Chief Complaint Chief complaint: ERCS - History of Present Psychiatric Illness Fanny Kuo is a 30 year old female with no prior psychiatric history who was consulted for anxiety. In my interview with the patient, she is tearful. The patient states she is tearful because she is away from her baby; baby is in the NICU. The patient denies being depressed and denies having excessive nervousness. The patient is naive to psychotropic medications and she is not receptive at this time. The patient denies any current suicidal/homicidal ideation and denies hallucinations. Psych History Diagnoses: Denies Suicide attempts or Self-harm behavior:Denies Prior psychiatric hospitalizations: Denies Substance Abuse history:Denies Previous psychiatric medications tried:Denies Outpatient treatment: Denies PAST MEDICAL HISTORY: none reported Family Psychiatric History: None reported or documented SOCIAL HISTORY Marital Status: Single Living Arrangements: unknown Employment Status:employed Access to guns/weapons: Denies Education: Associate degree History of Abuse: Denies Legal History: none reported REVIEW OF SYSTEMS Constitutional: Negative for weight loss ENT: Negative for stridor Respiratory: Negative for cough or hemoptysis All other systems reviewed and are negative MENTAL STATUS EXAMINATION General Appearance and Behavior: Age appropriate, good hygiene, wearing appropriate clothes, sleeping, cooperative Cooperation: Participating but drowsy Psychomotor Behavior: unremarkable and within normal limits Mood: "OK" Affect and affective range: Incongruent with mood Thought Process:Goal directed Thought Content: Not suicidal Speech: Normal volume, Regular rate and rhythm, Suicidal Ideation: Denies Homicidal Ideation:Denies Hallucinations:Denies Delusions: None elicited Impulse Control: Normal Insight and Judgment: Limited insight and good judgment, Memory: Normal, Attention: Normal Orientation: Alert, oriented Assessment and Plan (1)Encounter for screening examination for mental health and behavioral disorders- Z13.30 Treatment plan Risks, benefits and alternatives of medications discussed with the patient, questions answered and consent obtained from patient. PSYCHOTHERAPY: Supportive psychotherapy provided MEDICAL: Per primary team DELIRIUM PRECAUTIONS: Please re-orient patient frequently, keep lights on during the day, and minimize benzodiazepines and opiates as these medications could worsen patient's confusion. FRUIT CUTTER: Defer to primary FRUIT CUTTER: Defer to primary Disposition: Do not recommend acute psychiatric inpatient treatment. Social Sciences Department Chair will provide patient with out patient resources. The patient to follow up with outpatient psych in 7 to 14 days upon discharge Thank you for the consult. Please contact with any questions and/or concerns. Case staffed with Dr. Jiménez Mental Status Exam Medications and Allergies Allergies Allergy/AdvReac Type Severity Reaction Status Date / Time No Known Allergies Allergy Verified 02/21/21 08:32 Home Medications Medication Instructions Recorded Confirmed Last Taken Type labetaloL [Normodyne TAB] 100 mg PO BID 04/17/17 02/28/21 02/20/21 History Aspirin [Aspirin EC] 1 tab PO QDAY 07/05/17 02/28/21 02/20/21 History Ferrous Sulfate [Feosol 325 MG tab] 325 mg PO BID #60 tablet 07/21/17 02/28/21 02/20/21 Rx Vit Calc,Iron,Folic 1 each PO DAILY #30 tablet 07/21/17 02/28/21 02/20/21 Rx [ Vitamins] Ibuprofen [Motrin] 600 mg PO Q8H PRN #60 tablet 02/26/21 Unknown Rx oxyCODONE /ACETAMINOPHEN [Percocet 1 tab PO Q6HR PRN #20 tablet 02/26/21 Unknown Rx 5/325] Active Meds: Active Medications Acetaminophen (Acetaminophen 325 Mg Tab) 650 mg PO Q4H PRN PRN Reason: Pain, Mild (1-3) Last Admin: 03/01/21 10:00 Dose: 650 mg Documented by: Hydrocodone Bitart/Acetaminophen (Hydrocodone/Acetaminophen 5-325 Mg Tab) 1 each PO Q6H PRN PRN Reason: Pain, Moderate (4-6) Last Admin: 02/28/21 09:35 Dose: 1 each Documented by: Diphenhydramine HCl (Diphenhydramine 50 Mg/Ml Vial) 12.5 mg IV Q2H PRN PRN Reason: Itching Last Admin: 03/01/21 10:00 Dose: 12.5 mg Documented by: Ferrous Sulfate (Ferrous Sulfate 325 Mg Tab) 325 mg PO QDAY MIMI Hydromorphone HCl (Hydromorphone 1 Mg/1 Ml Inj) 0.5 mg IV Q4H PRN PRN Reason: breakthrough pain > 7/10 Oxytocin/Sodium Chloride (Pitocin/Ns 30 Unit/500ml) 30 units in 500 mls @ 0 ml s/hr IV TITR MIMI; Protocol Dextrose/Lactated Ringer's (D5lr) 1,000 mls @ 125 mls/hr IV DIRECT COUNTS INCLUDE 234 BEDS AT THE [facility] Last Admin: 02/27/21 03:17 Dose: 125 mls/hr Documented by: Sodium Chloride (Nacl 0.9% 500 Ml) 500 mls @ 0 mls/hr IV ONCE@0900 COUNTS INCLUDE 234 BEDS AT THE [facility] Stop: 03/01/21 13:00 Ibuprofen (Ibuprofen 600 Mg Tab) 600 mg PO Q6H PRN PRN Reason: Pain, Mild (1-3) Last Admin: 02/28/21 23:56 Dose: 600 mg Documented by: Magnesium Hydroxide (Magnesium Hydroxide (Mom) Oral Liqd Udc) 30 ml PO QDAY COUNTS INCLUDE 234 BEDS AT THE [facility] Last Admin: 02/28/21 09:34 Dose: 30 ml Documented by: Misoprostol (Misoprostol 200 Mcg Tab) 800 mcg DE ONCE PRN PRN Reason: Uterine Bleeding Morphine Sulfate (Morphine 2 Mg/1 Ml Inj) 2 mg IV Q4H PRN PRN Reason: Pain, Moderate (4-6) Morphine Sulfate (Morphine 4 Mg/1 Ml Inj) 4 mg IV Q4H PRN PRN Reason: Pain , Severe (7-10) Last Admin: 02/27/21 17:00 Dose: 4 mg Documented by: Multi-Ingredient Ointment (Lanolin/Zinc/Dimethicone (Lansinoh) 7 Gm) 1 applic TP PRN PRN PRN Reason: dryness/cracking Nalbuphine HCl (Nalbuphine 10 Mg/1 Ml Inj) 10 mg IV Q2H PRN PRN Reason: Pain, Moderate (4-6) Nalbuphine HCl (Nalbuphine 10 Mg/1 Ml Inj) 2.5 mg IV Q2H PRN PRN Reason: Itching Naloxone HCl (Naloxone 0.4 Mg/1 Ml Inj) 0.1 mg IV Q2MIN PRN PRN Reason: Res Rate </= 8 or 02 SAT < 92% Ondansetron HCl (Ondansetron 4 Mg/2 Ml Inj) 4 mg IV Q8H PRN PRN Reason: Nausea And Vomiting Oxycodone/Acetaminophen (Oxycodone /Acetaminophen 5-325mg Tab) 1 tab PO Q6H PRN PRN Reason: Pain, Moderate (4-6) Last Admin: 02/28/21 05:25 Dose: 1 tab Documented by: Promethazine HCl (Promethazine 25 Mg Tab) 25 mg PO Q6H PRN PRN Reason: Nausea And Vomiting Promethazine HCl (Promethazine 25 Mg Rect Supp) 25 mg DE Q6H PRN PRN Reason: Nausea And Vomiting Sodium Chloride (Sodium Chloride 0.9% 10 Ml Flush Syringe) 10 ml IV PRN MIMI Terbutaline Sulfate (Terbutaline 1 Mg/1 Ml Inj) 0.25 mg SUB-Q ONCE PRN PRN Reason: Hyperstimulation/Hypertonicity Witch Shey/Glycerin (Witch Shey/ Glycerin Pad) 1 each TP PRN PRN PRN Reason: Hemorrhoids/cleansing/soothing Mental Status Exam - Vital signs Last Vital Signs Temp 98.2 F 03/01/21 10:34 Pulse 70 03/01/21 10:34 Resp 16 03/01/21 10:34 BP 118/78 03/01/21 10:34 Pulse Ox 96 03/01/21 10:34 Results Result Diagrams: 03/01/21 06:53 Abnormal lab results 03/01/21 03/01/21 Range/Units 06:53 08:36 RBC 2.46 L (3.65-5.03) M/mm3 Hgb 8.0 L (10.1-14.3) gm/dl Hct 22.2 L (30.3-42.9) % MCH 33 H (28-32) pg MCHC 36 H (30-34) % [place] % (Auto) 7.4 H (0.0-7.3) % Seg Neutrophils % 75.0 H (40.0-70.0) % Crossmatch See Detail All other labs normal.
[2021-03-01] MEDS: FERROUS SULFATE 325 MG TAB PO SCH (12:15)
[2021-03-01] MEDS: IBUPROFEN 600 MG TAB PO PRN (12:26)
[2021-03-01] MEDS: MAGNESIUM HYDROXIDE (MOM) ORAL LIQD UDC PO SCH (19:11)
[2021-03-02 05:02] LABS: Hemoglobin 8.5 gm/dl (10.1-14.3)
[2021-03-02] MEDS: IBUPROFEN 600 MG TAB PO PRN ×3 (05:09→23:21)
[2021-03-02] MEDS: FERROUS SULFATE 325 MG TAB PO SCH (10:54)
--- NOTE | 2021-03-02 11:01 | Progress Note ---
Assessment and Plan A: day 4 S/P repeat LTCS with BTL. Anemia. Tachycardia, resolving. Anxiety. Obesity. P: Continue oral iron supplementation. Await blood culture and urine culture results. Patient plans follow up with as outpatient after discharge. Case management to see patient. Anticipate discharge home this evening or tomorrow if patient continues to do well. Subjective - Subjective Date of service: 03/02/21 Principal diagnosis: /postop day 4 S/P repeat LTCS with BTL Interval history: Patient states she is feeling much better. Patient's pulse is decreasing S/P blood transfusion. Patient is receiving oral iron supplementation for anemia. Blood and urine cultures still pending. Patient has remained afebrile. Patient saw for anxiety and plans to follow up with as an outpatient after discharge. Case management still to see patient. Patient reports: appetite normal, voiding normally, pain well controlled, flatus, ambulating normally, no dizzy ambulation, no nauseated : in NICU Objective - Vital Signs Latest vital signs: Vital Signs Temp Pulse Resp BP BP Pulse Ox Pulse Ox 03/02/21 08:42 98.1 F 93 H 18 118/77 98 03/02/21 07:45 98 03/02/21 05:13 97 03/02/21 04:20 111 H 123/82 96 03/02/21 03:30 97 03/02/21 01:35 97 03/02/21 00:42 98.2 F 123 H 20 126/77 98 03/01/21 23:37 98 03/01/21 22:10 98 03/01/21 20:15 98 03/01/21 16:10 98.2 F 108 H 20 130/81 03/01/21 13:10 98.5 F 115 H 20 126/86 03/01/21 11:59 98.6 F 115 H 16 132/79 100 03/01/21 11:29 98 F 95 H 16 122/69 96 03/01/21 10:59 98.6 F 105 H 16 123/77 96 Intake and Output 03/01/21 03/02/21 03/02/21 23:59 07:59 15:59 Intake Total 482 240 Balance 482 240 Intake: Oral 482 240 Other: Total, Intake Amount 360 120 # Voids Void 1 1 - Exam Cardiovascular: Present: Regular rate Lungs: Present: Clear to auscultation Abdomen: Present: normal appearance, soft, normal bowel sounds. Absent: distention, tenderness, guarding, rigidity Uterus: Present: normal, firm, fundal height below umbilicus. Absent: bogginess, tenderness Extremities: Absent: tenderness, edema Incision: Present: dry, intact - Labs Labs: Abnormal lab results 03/01/21 03/02/21 Range/Units 08:36 04:13 Hgb 8.5 L (10.1-14.3) gm/dl Hct 25.0 L (30.3-42.9) % Crossmatch See Detail
--- NOTE | 2021-03-02 13:37 | Event Note ---
Date: 03/02/21 Urine culture shows gram negative madonna; sensitivity pending. Rocephin 1 gram IV every 24 hours ordered. Patient and her nurse notified.
[2021-03-02] MEDS: cefTRIAXone/NS 1 GM/50 ML 1 GM/50 ML BAG IV SCH (14:56)
[2021-03-03] MEDS: FERROUS SULFATE 325 MG TAB PO SCH (10:29)
[2021-03-03] MEDS: MAGNESIUM HYDROXIDE (MOM) ORAL LIQD UDC PO SCH (10:30)
[2021-03-03] MEDS: IBUPROFEN 600 MG TAB PO PRN (10:35)
--- NOTE | 2021-03-03 10:39 | Progress Note ---
Assessment and Plan A: POD# 5 Severe Anemia UTI (Enterobacter Aerogenes) Anxiety P: Follow Routine PostOp Orders Continue Rocephin as ordered S/p Blood Transfusion; Continue PO Ferrous Sulfate as ordered S/P Psychiatric Consult: Recommend outpatient follow-up with Psy 7-14 days after discharge Subjective - Subjective Date of service: 03/03/21 Principal diagnosis: /postop day 4 S/P repeat LTCS with BTL Patient reports: appetite normal, voiding normally, pain well controlled, flatus, bowel movement, ambulating normally, other (Denies Dysuria. Denies lightheadness, dizziness, and SOB. Also states she feels well mentally; Just returned from NICU visit) [place]: doing well, in NICU Objective - Vital Signs Latest vital signs: Vital Signs Temp Pulse Resp BP BP Pulse Ox Pulse Ox 03/03/21 08:25 98.5 F 92 H 20 129/84 99 03/03/21 08:00 98 03/03/21 05:17 98.5 F 95 H 18 123/86 98 03/03/21 00:59 98.7 F 104 H 18 121/80 98 03/02/21 21:50 98 03/02/21 21:05 98.0 F 98 H 24 120/86 99 03/02/21 17:44 98.0 F 80 18 131/85 99 03/02/21 12:30 97.9 F 84 18 135/89 99 Intake and Output 03/02/21 03/03/21 03/03/21 22:59 06:59 14:59 Intake Total 360 300 Balance 360 300 Intake: Intake, Free Water 360 300 Other: # Voids Void 1 1 - Exam Breasts: Present: normal Cardiovascular: Present: Regular rate Lungs: Present: Clear to auscultation, Normal air movement Abdomen: Present: normal appearance, soft, normal bowel sounds Uterus: Present: normal, firm, fundal height below umbilicus Extremities: Present: normal Incision: Present: normal, dry, intact
[2021-03-03] MEDS: cefTRIAXone/NS 1 GM/50 ML 1 GM/50 ML BAG IV SCH (15:43)
--- NOTE | 2021-03-04 00:07 | Progress Note ---
Assessment and Plan discharge to home on PO abx Vanessa Nuno MD Subjective - Subjective Date of service: 03/04/21 Principal diagnosis: /postop day 4 S/P repeat LTCS with BTL Interval history: meets discharge criteria Vanessa Nuno MD Patient reports: appetite normal, voiding normally, ambulating normally [place]: doing well Objective - Vital Signs Latest vital signs: Vital Signs Temp Pulse Resp BP Pulse Ox Pulse Ox 03/03/21 19:30 97 03/03/21 16:06 99.2 F 106 H 16 128/85 100 03/03/21 08:25 98.5 F 92 H 20 129/84 99 03/03/21 08:00 98 03/03/21 05:17 98.5 F 95 H 18 123/86 98 03/03/21 00:59 98.7 F 104 H 18 121/80 98 Intake and Output 03/03/21 03/03/21 03/04/21 15:59 23:59 07:59 Intake Total 440 600 Balance 440 600 Intake: Oral 440 600 Other: Total, Intake Amount 200 240 # Voids Void 1 1 - Exam Breasts: Present: deferred Cardiovascular: Present: Regular rate Lungs: Present: Clear to auscultation Abdomen: Present: normal appearance, normal bowel sounds Uterus: Present: fundal height below umbilicus Extremities: Present: normal Deep Tendon Reflex Grade: Normal +2 Incision: Present: normal, dry, intact
--- NOTE | 2021-03-04 00:13 | Discharge Summary ---
Providers - Providers Date of Admission: 02/26/21 10:47 Date of discharge: 03/04/21 Attending physician: GARRY JOHNSON MD 03/01/21 05:33 Consult to Physician [CONS] Routine Comment: Consulting Provider: ALTAF CASTRO Physician Instructions: Reason For Exam: tachycardia 03/01/21 05:56 Consult to Case Management [CONS] Routine Services Needed at Discharge: Tmd Teacher Notified:: yes Phone number called:: [phone] Time called:: 16:16 Comment:: Anxiety, baby is in NICU () Additional Physician Instructions: see computer for orders Consult to Mental Health [CONS] Routine Reason For Exam: Anxiety Primary care physician: GARRY JOHNSON MD Hospitalization Reason for admission: section Delivery: Procedure: bilateral tubal ligation, repeat low transverse Discharge diagnosis: delivery Condition at discharge: Stable Disposition: 01 HOME / SELF CARE / HOMELESS Plan - Discharge Medications Prescriptions: Nitrofurantoin [place]/M-Cryst [Macrobid CAP] 100 mg PO Q12HR 5 Days #10 capsule Ibuprofen [Motrin] 600 mg PO Q8H PRN #60 tablet PRN Reason: Pain oxyCODONE /ACETAMINOPHEN [Percocet 5/325] 1 tab PO Q6HR PRN #20 tablet PRN Reason: Pain - Provider Discharge Summary Activity: no sex for 6 weeks Additional instructions: [] Smoking cessation referral if applicable(refer to patient education folder for contact #) [] Refer to [facility]'s [facility] Booklet Call your doctor immediately for: * Fever > 100.5 * Heavy vaginal bleeding ( >1 pad per hour) * Severe persistent headache * Shortness of breath * Reddened, hot, painful area to leg or breast * Drainage or odor from incision. * Keep incision clean and dry at all times and follow doctor's instructions regarding bathing/showering - Follow up plan Follow up: GARRY JOHNSON MD [Primary Care Provider] - 7 Days Forms: [facility] Discharge Summary
[2021-03-04] MEDS: IBUPROFEN 600 MG TAB PO PRN (08:01)
[2021-03-04] MEDS: MAGNESIUM HYDROXIDE (MOM) ORAL LIQD UDC PO SCH (10:22)
--- NOTE | 2021-03-04 11:00 | Electrocardiograph Report ---
[facility] Test Date: 2021-03-01 Test Time: 06:03:56 Pat Name: KILO VIGIL Department: Room: 2137 1 Gender: F Case Filler: PIYUSH : 1990 Requested By: LISA CONNOLLY Order Number: [id number] Reading MD: Elsa Cui Measurements Intervals [place] Rate: 121 P: 47 ND: 149 QRS: 75 QRSD: 79 T: 12 QT: 296 QTc: 420 Interpretive Statements Sinus tachycardia No previous ECG available for comparison Electronically Signed On 03-04-2021 11:00:45 EDT by Elsa Cui
[2021-03-04] MEDS: cefTRIAXone/NS 1 GM/50 ML 1 GM/50 ML BAG IV SCH (14:59)
[2021-03-04 16:25] VITALS: BP 125/88
== END 2021-03-04 16:33 | disposition home or self-care (01) | DRG 783 ==
LOC: TRG 10:46 → LD 10:47 → TRG 12:09 → OB 19:30
PROVIDERS: ADMIT Obstetrics & Gynecology; ATTEND Obstetrics & Gynecology
PROC: 10D00Z1 Extraction of Products of Conception, Low, Open Approach (ICD-10-PCS; principal; 2021-02-26)
PROC: 0UB70ZZ Excision of Bilateral Fallopian Tubes, Open Approach (ICD-10-PCS; 2021-02-26)
PROC: 30233N1 Transfusion of Nonautologous Red Blood Cells into Peripheral Vein, Percutaneous Approach (ICD-10-PCS; 2021-03-01)
DX: O36.5930 Maternal care for other known or suspected poor fetal growth, third trimester, not applicable or unspecified (principal); O60.14X0 Preterm labor third trimester with preterm delivery third trimester, not applicable or unspecified; O86.20 Urinary tract infection following delivery, unspecified; N39.0 Urinary tract infection, site not specified; O99.43 Diseases of the circulatory system complicating the puerperium; O34.211 Maternal care for low transverse scar from previous cesarean delivery; Z3A.32 32 weeks gestation of pregnancy; Z37.0 Single live birth; Z20.822 Contact with and (suspected) exposure to COVID-19; F41.9 Anxiety disorder, unspecified; O99.344 Other mental disorders complicating childbirth; O99.214 Obesity complicating childbirth; O16.4 Unspecified maternal hypertension, complicating childbirth; O90.81 Anemia of the puerperium; Z30.2 Encounter for sterilization
CPT/HCPCS: 36415; 71045; 81001; 85014; 85018; 85025; 86850; 86900; 86901; 86920; 87040; 87076; 87086; 87186; 88302; 88305; 88307; 93005; 99211; G0378; G0463; J0690; J0696; J1100; J1200; J1885; J2270; J2370; J2405; J2765; J3490; J7050; J7120; J7121; P9016; U0003